=== PATIENT | male | born 1980 | race Caucasian/White ===

== ENCOUNTER → 2017-10-15 09:06 | Outpatient (CLI) | payer OTHER, SELFPAY ==
[2017-10-15 11:11] LABS: Hemoglobin 17.8 g/dL (13.5-17.5); Mean Corpuscular Volume 87.9 fL (80-100); Neutrophils Absolute Auto 2900 /uL (3000-5900)
[2017-10-15 11:17] LABS: Add Manual Diff / Slide Review NO; Basophils Percent Auto 0.7 % (0-2); Eosinophils Percent Auto 1.2 % (2-4); Hematocrit 49.3 % (41-53); Lymphocytes Percent Auto 56.8 % (25-40); Mean Corpuscular HGB Conc 36.2 % (30-36); Mean Corpuscular Hemoglobin 31.8 PG (26-34); Monocytes Percent Auto 8.3 % (3-14); Platelet Count 128 X10^3/uL (150-400); Red Blood Cell Count 5.61 X10^6/uL (4.5-5.9); Red Cell Distribution Width 13.2 % (11.6-14.8); White Blood Cell Count 8.8 X10^3/uL (4.5-11.0)
[2017-10-15 11:25] LABS: Alanine Aminotransferase 42 IU/L (21-72); Albumin 4.2 g/dL (3.5-5.0); Albumin Globulin Ratio 1.4 (1.0-2.8); Alkaline Phosphatase 67 U/L (38-126); Aspartate Aminotransferase 31 IU/L (17-59); BUN Creatinine Ratio 24.4 (6-22); Bilirubin Total 1.2 mg/dL (0.2-1.3); Blood Urea Nitrogen 22 mg/dL (9-20); Carbon Dioxide 25 mmol/L (22-32); Chloride 99 mmol/L (98-107); Creatine Kinase 167 U/L (55-170); Estimated Glomerular Filt Rate > 60.0 mL/min (>60); Glucose 131 mg/dL (70-100); Sodium 138 mmol/L (137-145); Total Protein 7.2 g/dL (6.3-8.2)
[2017-10-15 11:26] LABS: C-Reactive Protein Quant < 0.5 mg/dL (<1.0)
[2017-10-15 11:39] LABS: HEMOLYSIS 56 (0-50)
[2017-10-15 11:52] LABS: Thyroid Stimulating Hormone 3.75 uIU/mL (0.47-4.68)
[2017-10-17 22:08] LABS: ANA Screen, IFA Negative (Negative)
== END ==
PROVIDERS: Family Provider Family Medicine; PCP Family Medicine; Visit Provider Physical Medicine & Rehabilitation
DX: M79.1 Myalgia (principal); R25.2 Cramp and spasm; M51.24 Other intervertebral disc displacement, thoracic region; S33.5XXA Sprain of ligaments of lumbar spine, initial encounter
CPT/HCPCS: 36415; 80053; 82550; 84443; 85025; 86038; 86140

== ENCOUNTER → 2017-11-19 15:55 | Outpatient (CLI) | payer OTHER, SELFPAY ==
[2017-11-19 16:24] LABS: Add Manual Diff / Slide Review NO; Basophils Percent Auto 0.8 % (0-2); Eosinophils Percent Auto 1.1 % (2-4); Hematocrit 45.2 % (41-53); Hemoglobin 16.1 g/dL (13.5-17.5); Lymphocytes Percent Auto 45.9 % (25-40); Mean Corpuscular HGB Conc 35.7 % (30-36); Mean Corpuscular Hemoglobin 31.4 PG (26-34); Monocytes Percent Auto 7.2 % (3-14); Neutrophils Absolute Auto 2900 /uL (3000-5900); Platelet Count 228 X10^3/uL (150-400); Red Blood Cell Count 5.13 X10^6/uL (4.5-5.9); White Blood Cell Count 6.4 X10^3/uL (4.5-11.0)
[2017-11-19 16:32] LABS: Hemoglobin A1C% w Est Avg Glu 7.6 % (4.0-6.0)
[2017-11-19 17:23] LABS: Alanine Aminotransferase 71 IU/L (21-72); Albumin 4.3 g/dL (3.5-5.0); Albumin Globulin Ratio 1.4 (1.0-2.8); Alkaline Phosphatase 70 U/L (38-126); Aspartate Aminotransferase 48 IU/L (17-59); Bilirubin Total 1.3 mg/dL (0.2-1.3); Blood Urea Nitrogen 11 mg/dL (9-20); Calcium 8.9 mg/dL (8.4-10.2); Carbon Dioxide 27 mmol/L (22-32); Chloride 100 mmol/L (98-107); Cholesterol 203 mg/dL (140-199); Estimated Glomerular Filt Rate > 60.0 mL/min (>60); Globulin 3.1 g/dL (1.7-4.1); Glucose 101 mg/dL (70-100); HDL Cholesterol 31 mg/dL (40-60); HEMOLYSIS 16 (0-50); LDL Cholesterol Calculated 131 mg/dL (<100); Potassium 3.5 mmol/L (3.4-5.1); Sodium 138 mmol/L (137-145); Total Protein 7.4 g/dL (6.3-8.2); Triglycerides 205 mg/dL (35-150)
== END ==
PROVIDERS: Family Provider Family Medicine; PCP Family Medicine; Visit Provider Nurse Practitioner
DX: E75.4 Neuronal ceroid lipofuscinosis (principal); Z00.00 Encounter for general adult medical examination without abnormal findings; E66.01 Morbid (severe) obesity due to excess calories
CPT/HCPCS: 36415; 80053; 80061; 83036; 85025

== ENCOUNTER → 2018-03-23 15:49 | Outpatient (CLI) | payer OTHER, SELFPAY ==
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
== END ==
PROVIDERS: PCP Nurse Practitioner; Visit Provider Nurse Practitioner
DX: E11.9 Type 2 diabetes mellitus without complications (principal); E66.8 Other obesity
CPT/HCPCS: 97802

== ENCOUNTER → 2018-04-13 16:01 | Outpatient (CLI) | payer OTHER, SELFPAY ==
--- NOTE | 2018-04-14 08:34 | DIET.PN ---
Nutrition follow up ? ASSESS:???Pt reports difficulty in following recommendations discussed at previous visit over the holiday. States mostly consumed hotel and restaurant food (eggs, hashbrowns, biscuits, mac n cheese, almaraz chvaez). Admits he is not good at making time for breakfast or lunch, but eats a very large dinner. Pt attended today's appointment. 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 Pt also reports poor memory. Did not recall much of what was discussed at prior appt. No dietary recall was recorded or blood glucose logged as requested. ? PMHX:??Severe back pain ? LABS: A1c 7.7 FB-140 2 hr PP (evening) :??120's Wt: 282 (down 5#) ? MEDS: Reviewed.? DM MEDS:??metformin 500mg ? DIET: Per recall:? B: Cereal w/ milk L: Dillon noodles D: starch and protein ? EXERCISE:??minimal walking ? NUTRITION Dx? (1) Altered nutrition related labs r/t type 2 DM, inconsistent carbohydrate intake as evidenced by pt report, dietary recall.?? ? INTERVENTION? (1) Reviewed blood sugar log and implications/reasons for elevated/decreased blood sugar.? (2) Reviewed carbohydrate counting and importance of consistent carbohydrate intake.? (3) Reviewed meal intake and importance of balanced meals (karlie to prevent overeating).? (4) Assisted patient create a meal plan for breakfast/lunch ideas to promote consistency while working.?? ? MONITOR/EVALUATE: Pt receptive to information provided.? Follow-up scheduled for 1 week to discuss protein/fat.?
== END ==
PROVIDERS: PCP Nurse Practitioner; Visit Provider Nurse Practitioner
DX: E11.9 Type 2 diabetes mellitus without complications (principal)
CPT/HCPCS: 97803

== ENCOUNTER → 2018-04-20 12:00 | Outpatient (CLI) | payer OTHER, SELFPAY | PROVIDERS: PCP Nurse Practitioner; Visit Provider Nurse Practitioner | DX: E11.9 Type 2 diabetes mellitus without complications (principal) | CPT/HCPCS: 97803 ==

== ENCOUNTER 2018-07-27 17:40 | Observation (INO) | payer OTHER, SELFPAY ==
[2018-07-27] VITALS (8 sets, daily range): BP systolic 128–147; BP diastolic 76–98; PULSE 73–87; RESP 13–20; TEMP 36.4; O2SAT 94–100; BMI 37.7
--- NOTE | 2018-07-27 18:39 | DI.RAD.S_ITS ---
PROCEDURE: XR CHEST 1V INDICATIONS: cp TECHNIQUE: One view of the chest was acquired. COMPARISON: [facility], , CHEST 1 VIEW, 08/10/2008, 19:49. FINDINGS: Surgical changes and devices: None. Lungs and pleura: Low lung volumes with scattered subsegmental atelectasis/scarring. No pleural effusions or pneumothorax. Mediastinum: Mediastinal contours appear normal. Heart size is normal. Bones and chest wall: No suspicious bony lesions. Overlying soft tissues appear unremarkable. IMPRESSION: No acute disease Dictated by: Dharmesh Shepherd M.D. on 07/27/2018 at 19:02 Approved by: Dharmesh Shepherd M.D. on 07/27/2018 at 19:03
[2018-07-27 18:50] LABS: Hematocrit 47.1 % (41-53); Hemoglobin 16.3 g/dL (13.5-17.5); Mean Corpuscular HGB Conc 34.6 % (30-36); Mean Corpuscular Hemoglobin 30.3 PG (26-34); Mean Corpuscular Volume 87.5 fL (80-100); Platelet Count 210 X10^3/uL (150-400); Red Blood Cell Count 5.38 X10^6/uL (4.5-5.9); Red Cell Distribution Width 12.8 % (11.6-14.8); White Blood Cell Count 6.6 X10^3/uL (4.5-11.0)
[2018-07-27 18:51] LABS: Add Manual Diff / Slide Review YES
[2018-07-27 18:55] LABS: D Dimer < 200 ng/mL (<230)
--- NOTE | 2018-07-27 19:02 | DI.US.S_ITS ---
PROCEDURE: US ABDOMEN COMPLETE INDICATIONS: EPIGASTRIC PAIN TECHNIQUE: Real-time scanning was performed of the abdominal and retroperitoneal organs, with image documentation. COMPARISON: None. FINDINGS: Liver: Liver is diffusely echogenic. Gallbladder: 6 mm gallstone which appears immobile within the gallbladder neck. No definite gallbladder wall thickening or pericholecystic fluid. Positive sonographic Waterman's sign Biliary ducts: Intrahepatic bile ducts are non-dilated. Extrahepatic bile duct caliber measures 7 mm. Normal is 6-7 mm or less in diameter, or 10 mm or less post-cholecystectomy. Pancreas: Visualized portions of the pancreas are sonographically normal. The tail is not well seen sonographically Spleen: Spleen is enlarged measuring 16.3 cm. Kidneys: Kidneys are normal in size and echotexture. Right kidney measures 12.3 cm long; left kidney measures 12.1 cm long. No hydronephrosis or nephrolithiasis. No solid masses. Aorta: Visualized aorta is normal in caliber at less than 3 cm. Iliacs: Proximal common iliac arteries are normal in caliber at less than 2.5 cm. IVC: Intrahepatic inferior vena cava is patent. Miscellaneous: No free abdominal fluid. IMPRESSION: Cholelithiasis, which may be impacted at the gallbladder neck. Positive sonographic Waterman sign. This raises the possibility of acute cholecystitis However, no definite gallbladder wall thickening or pericholecystic fluid. Recommend clinical correlation and to LFTs Splenomegaly. Coarse echogenic liver suggesting diffuse hepatocellular disease/fatty infiltration. Please correlate with LFTs. Dictated by: Dharmesh Shepherd M.D. on 07/27/2018 at 20:13 Approved by: Dharmesh Shepherd M.D. on 07/27/2018 at 20:15
[2018-07-27 19:04] LABS: Alanine Aminotransferase 57 IU/L (21-72); Albumin 4.5 g/dL (3.5-5.0); Albumin Globulin Ratio 1.5 (1.0-2.8); Alkaline Phosphatase 44 U/L (38-126); Aspartate Aminotransferase 44 IU/L (17-59); Bilirubin Total 1.2 mg/dL (0.2-1.3); Blood Urea Nitrogen 17 mg/dL (9-20); Calcium 8.9 mg/dL (8.4-10.2); Carbon Dioxide 26 mmol/L (22-32); Chloride 102 mmol/L (98-107); Creatine Kinase 400 U/L (55-170); Estimated Glomerular Filt Rate > 60.0 mL/min (>60); Glucose 95 mg/dL (70-100); Lipase 58 U/L (23-300); Sodium 137 mmol/L (137-145); Total Protein 7.5 g/dL (6.3-8.2)
[2018-07-27 19:08] LABS: HEMOLYSIS 103 (0-50); Potassium 4.4 mmol/L (3.4-5.1)
[2018-07-27 19:16] LABS: Troponin I 0.023 ng/mL (0.01-0.034)
[2018-07-27 19:19] LABS: CKMB % Relative Index 1.2 % (1.5-5.0); Creatine Kinase MB 4.64 ng/mL (<2.37)
[2018-07-27 19:26] LABS: Neutrophils Absolute Manual 2046 /uL (3000-5900); Total Cells Counted 100
[2018-07-27 19:28] LABS: RBC Morphology Normal Morphology
--- NOTE | 2018-07-27 19:55 | ED_ITS ---
HPI - Chest Pain General Chief Complaint: Chest Pain Stated Complaint: chest pains in the middle, and right side Time Seen by Provider: 07/27/18 18:18 Source: patient Mode of arrival: ambulatory Limitations: no limitations History of Present Illness HPI narrative: 37-year-old male nonsmoker with a rather benign medical history presents with a chief complaint an episode of sharp and stabbing epigastric pain that has since radiated to his right upper quadrant over the course of the day. It is worse with motion and palpation. He has felt a bit nauseated and lightheaded. He denies fever or shaking chills. Patient denies any abdominal surgeries. He last had any food at Related Data Home Medications Medication Instructions Recorded Confirmed CA PANTOTHENATE/FOLIC ACID/VIT 1 tab PO QDAY #0 09/26/12 01/05/18 (MULTIVITAMIN) Fish Oil (Fish Oil 500 MG Softgel) 500 mg PO QDAY #0 09/26/12 01/05/18 OMEPRAZOLE 20 mg PO BID #0 09/26/12 01/05/18 lorazepam 1 mg PO Q4HP PRN #0 01/15/17 01/05/18 cholecalciferol (vitamin D3) 2,000 2,000 unit PO DAILY 03/07/18 03/07/18 unit capsule metformin 500 mg tablet 500 mg PO BID 03/07/18 03/07/18 Previous Rx's Medication Instructions Recorded verapamil ER 240 mg 24 hr 240 mg PO QDAY #30 cap 01/05/18 capsule,extended release erenumab-aooe 70 mg/mL 140 mg SUBCUT QMONTH #2 ml 03/07/18 subcutaneous auto-injector Allergies Allergy/AdvReac Type Severity Reaction Status Date / Time naproxen [NAPROXEN] Allergy Unknown Verified 07/27/18 17:49 Review of Systems Constitutional Denies chills, Denies fever(s), Denies lethargy and Denies weakness Eyes Denies change in vision, Denies eye discharge, Denies irritation and Denies loss of vision ENT Ears, Nose, Mouth, and Throat: Denies change in voice, Denies neck pain and Denies sore throat Cardiovascular Denies chest pain, Denies irregular heart rhythm, Denies lightheadedness, Denies palpitations, Denies dyspnea, Denies dyspnea on exertion and Denies orthopnea Respiratory Denies cough, Denies dyspnea, Denies dyspnea on exertion and Denies wheezing Gastrointestinal Gastrointestinal: Reports abdominal pain, Denies change in bowel habits, Denies diarrhea, Reports nausea and Reports vomiting Genitourinary Denies hematuria, Denies flank pain, Denies urinary incontinence and Denies urinary urgency Musculoskeletal Denies neck pain Integumentary/Breasts Denies pruritus, Denies erythema, Denies rash and Denies wounds Neurologic Denies confusion, Denies loss of vision and Denies weakness Psychiatric Denies anxiety, Denies confusion, Denies depression, Denies homicidal ideation and Denies suicidal ideation Endocrine Denies palpitations Hematologic/Lymphatic Denies easy bruising Allergic/Immunologic Denies wheezing [facility] Medical History Asthma (Chronic) Cyclical vomiting (Chronic) Diabetes (Chronic) HTN (hypertension) (Chronic) Migraines (Chronic) Sleep apnea (Chronic) Surgical History H/O arthroscopy of knee (Resolved) Family History Father Cancer Social History household members: spouse Smoking Status: Former smoker Family History Father Cancer Social History household members: spouse Smoking Status: Former smoker Exam Narrative Exam Narrative: GENERAL: 37M obviously uncomfortable HEAD: Atraumatic. Normocephalic. No temporal or scalp tenderness. EYES: Pupils equal round and reactive. Extraocular motions intact. No scleral icterus. No injection or drainage. ENT: Nose without bleeding, purulent drainage or septal hematoma. Throat without erythema, tonsillar hypertrophy or exudate. Uvula midline. Airway patent. NECK: Trachea midline. No JVD or lymphadenopathy. Supple, nontender, no meningeal signs. CARDIOVASCULAR: Regular rate and rhythm without murmurs, gallops, or rubs. RESPIRATORY: Clear to auscultation. Breath sounds equal bilaterally. No wheezes, rales, or rhonchi. GASTROINTESTINAL: obese abdomen, quite tender in RUQ, pain with palp EXTREMITIES: No clubbing, cyanosis, or edema. No joint tenderness, effusion, or edema noted. BACK: Nontender without deformity or crepitance. No flank tenderness. NEURO: AOx3. SKIN: No rash or erythema. Initial Vital Signs Initial Vital Signs: Vital Signs Temperature 97.5 F L 07/27/18 17:44 Pulse Rate 84 07/27/18 17:44 Respiratory Rate 18 07/27/18 17:44 Blood Pressure 147/98 H 07/27/18 17:44 Pulse Oximetry 99 07/27/18 17:44 Course Orders Ordered: Hydromorphone HCl (Dilaudid) 1 mg IV Q2HR PRN PRN Reason: Pain, Moderate (4-6) Last Admin: 07/28/18 06:11 Dose: 1 mg Admin: 07/27/18 23:25 Dose: 1 mg Cefotetan Disodium/Dextrose (Cefotan) 2 gm in 50 mls @ 100 mls/hr IV Q12H [facility] Last Infusion: 07/28/18 06:15 Dose: 0 mls/hr Admin: 07/28/18 02:03 Dose: 100 mls/hr Sodium Chloride (Normal Saline 0.9%) 1,000 mls @ 125 mls/hr IV CONT [facility] Last Admin: 07/27/18 23:24 Dose: 125 mls/hr Ondansetron HCl (Zofran) 4 mg IV Q4HR PRN PRN Reason: Nausea And Vomiting Last Admin: 07/28/18 06:43 Dose: 4 mg Admin: 07/27/18 23:25 Dose: 4 mg Verapamil HCl (Verapamil Er) 240 mg PO DAILY [facility] Last Admin: 07/28/18 02:02 Dose: 240 mg Discontinued Medications Enoxaparin Sodium (Lovenox) 40 mg SUBCUT NOW ONE Stop: 07/27/18 23:06 Last Admin: 07/28/18 02:02 Dose: 40 mg HYDROMORPHONE APPRAISAL TECHNICIAN (6MG/30ML) (Dilaudid Waste Picker (6mg/30ml)) 6 mg in 30 mls @ 0 mls/hr IV Q8HR PRN PRN Reason: Pain, Severe (7-10) Naloxone HCl (Narcan) 0.2 mg IV Q2MIN PRN; Protocol PRN Reason: Opiate Reversal Ondansetron HCl (Zofran) 4 mg IV Q4HR PRN PRN Reason: Nausea And Vomiting Vital Signs - 8 hr 07/28/18 00:29 07/28/18 03:11 Temperature 97.0 F L 97.6 F Pulse Rate 76 76 Respiratory Rate 18 Blood Pressure 139/75 119/76 Pulse Oximetry 98 MDM - Chest Pain Medical Records Data Attestation: I reviewed the patient's medical records. Lab Data Attestation: I reviewed the patient's lab results. Result diagrams: 07/27/18 18:35 07/27/18 18:35 Lab Results 07/27/18 07/27/18 07/27/18 Range/Units 18:35 18:35 18:35 WBC 6.6 (4.5-11.0) X10^3/uL RBC 5.38 (4.5-5.9) X10^6/uL Hgb 16.3 (13.5-17.5) g/dL Hct 47.1 (41-53) % MCV 87.5 (80-100) fL MCH 30.3 (26-34) PG MCHC 34.6 (30-36) % RDW 12.8 (11.6-14.8) % Plt Count 210 (150-400) X10^3/uL Neut % (Auto) Not Reportable Lymph % (Auto) Not Reportable [place] % (Auto) Not Reportable Eos % (Auto) Not Reportable Baso % (Auto) Not Reportable Lymph # (Auto) Not Reportable [place] # (Auto) Not Reportable Baso # (Auto) Not Reportable Total Counted 100 Seg Neutrophils % 31.0 L (38-70) % Lymphocytes % (Manual) 38.0 (25-45) % Atypical Lymphs % 26.0 H ( - 0) % Monocytes % (Manual) 2.0 (2-11) % Basophils % (Manual) 3.0 H (0-1) % Neutrophils # (Manual) 2046 L (3340-9482) /uL RBC Morphology Normal morphology D-Dimer < 200 (<230) ng/mL Sodium 137 (137-145) mmol/L Potassium 4.4 (3.4-5.1) mmol/L Chloride 102 (98-107) mmol/L Carbon Dioxide 26 (22-32) mmol/L BUN 17 (9-20) mg/dL Creatinine 1.00 (0.66-1.25) mg/dL Estimated GFR > 60.0 (>60) mL/min BUN/Creatinine Ratio 17.0 (6-22) Glucose 95 (70-100) mg/dL Calcium 8.9 (8.4-10.2) mg/dL Total Bilirubin 1.2 (0.2-1.3) mg/dL AST 44 (17-59) IU/L ALT 57 (21-72) IU/L Alkaline Phosphatase 44 (38-126) U/L Total Creatine Kinase 400 H (55-170) U/L CK-MB (CK-2) 4.64 H (<2.37) ng/mL CK-MB (CK-2) Rel Index 1.2 L (1.5-5.0) % Troponin I 0.023 (0.01-0.034) ng/mL Total Protein 7.5 (6.3-8.2) g/dL Albumin 4.5 (3.5-5.0) g/dL Globulin 3.0 (1.7-4.1) g/dL Albumin/Globulin Ratio 1.5 (1.0-2.8) Lipase 58 (23-300) U/L Urine Dip Bedside Urine Glucose Negative Bedside Urine Bilirubin - Negative Bedside Urine Ketone - Negative Urine Specific [place] 1.015 Bedside Urine Occult Blood - Negative Bedside Urine pH 6.5 Bedside Urine Protein - Negative Bedside Urine Urobilinogen - Negative Bedside Urine Nitrite - Negative Bedside Urine Leukocytes - Negative Esterase Imaging Data Chest x-ray: Radiologist's impression: [address] [address] XRay Report Signed Patient: Leeroy Denis BMR#: [id number] : 1980Acct:[id number] Age/Sex: 37 / MDate of Service: 07/27/18 Loc: ED Accession Number: [id number] Procedure: XR chest 1V Ordering Provider: Arun Ontiveros D.O. PROCEDURE: XR CHEST 1V INDICATIONS: cp TECHNIQUE: One view of the chest was acquired. COMPARISON: Merged with [facility], CHEST 1 VIEW, 08/10/2008, 19:49. FINDINGS: Surgical changes and devices: None. Lungs and pleura: Low lung volumes with scattered subsegmental atelectasis/scarring. No pleural effusions or pneumothorax. Mediastinum: Mediastinal contours appear normal. Heart size is normal. Bones and chest wall: No suspicious bony lesions. Overlying soft tissues appear unremarkable. IMPRESSION: No acute disease Dictated by: Dharmesh Shepherd M.D. on 07/27/2018 at 19:02 Approved by: Dharmesh Shepherd M.D. on 07/27/2018 at 19:03 US - abdomen: Radiologist's impression: [address] [address] Ultrasound Report Signed Patient: Leeroy Denis BMR#: [id number] : 1980Acct:[id number] Age/Sex: 37 / MDate of Service: 07/27/18 Loc: ED Accession Number: [id number] Procedure: US abdomen complete Ordering Provider: Arun Ontiveros D.O. PROCEDURE: US ABDOMEN COMPLETE INDICATIONS: EPIGASTRIC PAIN TECHNIQUE: Real-time scanning was performed of the abdominal and retroperitoneal organs, with image documentation. COMPARISON: None. FINDINGS: Liver: Liver is diffusely echogenic. Gallbladder: 6 mm gallstone which appears immobile within the gallbladder neck. No definite gallbladder wall thickening or pericholecystic fluid. Positive sonographic Waterman's sign Biliary ducts: Intrahepatic bile ducts are non-dilated. Extrahepatic bile duct caliber measures 7 mm. Normal is 6-7 mm or less in diameter, or 10 mm or less post-cholecystectomy. Pancreas: Visualized portions of the pancreas are sonographically normal. The tail is not well seen sonographically Spleen: Spleen is enlarged measuring 16.3 cm. Kidneys: Kidneys are normal in size and echotexture. Right kidney measures 12.3 cm long; left kidney measures 12.1 cm long. No hydronephrosis or nephrolithiasis. No solid masses. Aorta: Visualized aorta is normal in caliber at less than 3 cm. Iliacs: Proximal common iliac arteries are normal in caliber at less than 2.5 cm. IVC: Intrahepatic inferior vena cava is patent. Miscellaneous: No free abdominal fluid. IMPRESSION: Cholelithiasis, which may be impacted at the gallbladder neck. Positive sonographic Waterman sign. This raises the possibility of acute cholecystitis However, no definite gallbladder wall thickening or pericholecystic fluid. Recommend clinical joel elation and to LFTs Splenomegaly. Coarse echogenic liver suggesting diffuse hepatocellular disease/fatty infiltration. Please correlate with LFTs. Dictated by: Dharmesh Shepherd M.D. on 07/27/2018 at 20:13 Approved by: Dharmesh Shepherd M.D. on 07/27/2018 at 20:15 [facility] Narrative Medical decision making narrative: discussed case with Gen. Surgery and he recommends admission with NPO status, antibiotics, fluids, and pain control or if patient would prefer he can be discharged with detailed return precautions and he will be seen in office on Wednesday. Patient prefers to stay in the hospital to this addressed sooner rather than later Discharge Plan Departure Patient Disposition: Admitted As Inpatient Clinical Impression: Cholelithiasis Qualifiers: Cholelithiasis location: gallbladder Cholecystitis presence: without cholecystitis Biliary obstruction: with biliary obstruction Qualified Code(s): K80.21 - Calculus of gallbladder without cholecystitis with obstruction Discharge Date/Time: 07/27/18 22:00 Interventions: ED Discharge Assessment Last Done: 07/27/18 22:47 Admit Date/Time: 07/27/18 21:23 Admit Provider: Scout Hawkins
--- NOTE | 2018-07-27 22:57 | PC.NURSE ---
Addendum entered by Dharmesh Isaac R.N. 07/27/18 23:05: Rec'd return call from Dr. Hawkins and rec'd TORB for dilaudid, zofran, and lovenox (see EMAR). Original Note: Rec'd pt from ED via w/c at 2220. AO x3 and making needs known with clear speech. Ambulates to BR independently with steady gait to void. Changed into hospital gown. Oriented to environment, bedside report, plan of care, call light. Pt reports pain 2/10 at rest and intermittently 6/10. Locates pain to RUQ, mid-epigastric and radiating to back at times. Also c/o intermittent nausea. Paged to Dr. Hawkins to report pain as no orders are noted in chart. Awaiting return call.
[2018-07-27] MEDS: SODIUM CHLORIDE 0.9% 1,000 ML 125 ML IV (23:24)
[2018-07-27] MEDS: HYDROMORPHONE 2 MG INJ 1 MG IV (23:25)
[2018-07-27] MEDS: ONDANSETRON 4 MG/2 ML INJ IV (23:25)
[2018-07-28] VITALS (28 sets, daily range): BP systolic 100–139; BP diastolic 52–78; PULSE 63–109; RESP 10–18; TEMP 36.1–37.4; O2SAT 87–100; BMI 37.7
--- NOTE | 2018-07-28 | PATH_ITS ---
[facility] Accession Number: [id number] . 01 Material submitted: . GALLBLADDER . 02 Diagnosis: Gallbladder, Cholecystectomy: Cholelithiasis with mild chronic cholecystitis. Negative for neoplasm. I/08/01/2018 . 02 Electronically signed: . Clinton Goins MD, PhD, Pathologist NPI- [id number] . 01 Gross description: . Received in formalin, labeled gallbladder, is an opened gallbladder (length-7.2 cm, diameter-2.8 cm) with tomlinson-blue smooth shiny serosa and a patent cystic duct. One lymph node (0.3 x 0.2 x 0.1 cm) is identified. The lumen contains green viscous bile and multiple dull hicks-yellow, friable calculi (0.3 x 0.2 x 0.1 cm in aggregate). The mucosa is hicks-green, smooth and flat. The wall is up to 0.1 cm thick. No nodules, masses or lesions are identified. Section code: (A1) cystic duct resection margin and two serial sections from the body; (A2) two longitudinal sections from the fundus; (A3) one intact lymph node. ([id number]) /MRV . 02 Pathologist provided ICD-10: K80.60 . 02 CPT . 627897 Specimen Comment: A duplicate report has been generated due to demographic updates. Performed at: 01 [facility] [address] [place] [address], [place], [place] [id number] MD Leeroy Saba MD Phone: [phone] Performed at: [address] [facility] [address] [place], [place] [id number] MD Jocelyne Love MD Phone: [phone]
[2018-07-28] MEDS: VERAPAMIL SR 240 MG TABLET PO (02:02)
[2018-07-28] MEDS: ENOXAPARIN 40 MG/0.4 ML SYRINGE SUBCUT (02:02)
[2018-07-28] MEDS: CEFOTETAN 2 GM/50 ML PIGGYBACK IV (02:03)
[2018-07-28] MEDS: HYDROMORPHONE 2 MG INJ 1 MG IV (06:11)
[2018-07-28] MEDS: ONDANSETRON 4 MG/2 ML INJ IV ×3 (06:43→20:30)
--- NOTE | 2018-07-28 07:25 | P.HP_ITS ---
History of Present Illness Date Patient Seen: 07/28/18 Time Patient Seen: 07:15 Chief complaint: chest pains in the middle, and right side Narrative: The patient is a gentleman with intermittent epigastric/chest pain for about a year. Usually it comes and goes away fairly quickly. No particular association with food. Last night however he developed the pain it lasts for about 5 hr and presented to the emergency room. He has cyclic nausea and vomiting but does not necessarily associate it with his pain. However yesterday he was nauseated but did not vomit. He has had no other abdominal procedures. He has no history of jaundice. No blood in his stool and no hematemesis. Patient History Medical History Asthma (Chronic) Cyclical vomiting (Chronic) Diabetes (Chronic) HTN (hypertension) (Chronic) Migraines (Chronic) Sleep apnea (Chronic) Surgical History H/O arthroscopy of knee (Resolved) Family History Father Cancer Social History household members: spouse Smoking Status: Former smoker Family & Social History Family History Father Cancer Social History: household members spouse Prior Living Arrangements Apartment/Condo Safety & Behavioral: Feels Safe in Current Yes Environment Been Physically Hurt or No Threatened By a Person Suicidal Ideation Description None Tobacco & Substance use: Smoking Status Former smoker alcohol intake frequency holiday/special occasion Substance Use Type does not use Meds Home Medications Medication Instructions Recorded Confirmed Type CA PANTOTHENATE/FOLIC ACID/VIT 1 tab PO QDAY #0 09/26/12 01/05/18 History (MULTIVITAMIN) Fish Oil (Fish Oil 500 MG Softgel) 500 mg PO QDAY #0 09/26/12 01/05/18 History OMEPRAZOLE 20 mg PO BID #0 09/26/12 01/05/18 History lorazepam 1 mg PO Q4HP PRN #0 01/15/17 01/05/18 History verapamil ER 240 mg 24 hr 240 mg PO QDAY #30 cap 01/05/18 Rx capsule,extended release cholecalciferol (vitamin D3) 2,000 2,000 unit PO DAILY 03/07/18 03/07/18 History unit capsule erenumab-aooe 70 mg/mL 140 mg SUBCUT QMONTH #2 ml 03/07/18 03/07/18 Rx subcutaneous auto-injector metformin 500 mg tablet 500 mg PO BID 03/07/18 03/07/18 History Allergies Allergy/AdvReac Type Severity Reaction Status Date / Time naproxen [NAPROXEN] Allergy Unknown Verified 07/27/18 17:49 Review of Systems Review of Systems Patient denies double vision pain is eyes earache sore throat or trouble sw allowing. No tooth aches. No cough or cold at this time. No sputum production. His asthma use to be treated with an inhaler but that no longer seems to help him. He he is not wheezing at this time. Patient denies heart problems. Had a murmur as a child but that went away. No black or bloody bowel movements. No seizures or blackouts. No problems with his thyroid he is aware of. He is an early diabetic. If he does not eat he has normal sugars but when he eats he takes metformin. No unusual bruising or bleeding. He does get migraine headaches. He has cyclical vomiting syndrome. He treats it with Zofran which he takes about every other day Exam Vital Signs (past 8 hours): - 07/28/18 00:29 07/28/18 03:11 Temperature 97.0 F L 97.6 F Pulse Rate 76 76 Respiratory Rate 18 Blood Pressure 139/75 119/76 Pulse Oximetry 98 Oxygen Delivery Method Room Air Oxygen Flow Rate 0 Narrative Exam Narrative: Cooperative pleasant gentleman in no apparent distress. Quite overweight. His eyes are nonicteric. Pupils equal round reactive to light. Conjunctivae are pink. Ears without lesion. He has a kelly. Oral mucosa is pink moist no open lesions. Teeth are intact. There are no nodes in the neck or supraclavicular areas. Trachea is midline and mobile. I feel no enlargement or mass or tenderness in his thyroid. His lungs are clear to auscultation without rales rhonchi or wheezing. Equal percussion. Heart regular rate and rhythm without murmur gallop. No heave lift or thrill. His abdomen is protuberant soft. He has tenderness to deep palpation the right upper quadrant. No guarding. Normal active bowel tones. No hernias appreciated. No masses appreciated. His extremities are without cyanosis clubbing or edema. I feel 1+ tibialis posterior pulses bilaterally. The patient is alert and oriented x3. Speech rate and content are appropriate. Affect is appropriate. His extr aocular movements are intact time his midline face is symmetric uvula elevates in the midline. Objective Imaging US - abdomen: Radiologist's impression: Stone in the neck of the gallbladder. No evidence of acute cholecystitis. Normal ductal system. Fatty infiltration of the liver. Labs Result Diagrams: 07/27/18 18:35 07/27/18 18:35 Labs: Laboratory Results - last 24 hr 07/27/18 07/27/18 07/27/18 18:35 18:35 18:35 WBC 6.6 RBC 5.38 Hgb 16.3 Hct 47.1 MCV 87.5 MCH 30.3 MCHC 34.6 RDW 12.8 Plt Count 210 Neut % (Auto) Not Reportable Lymph % (Auto) Not Reportable [place] % (Auto) Not Reportable Eos % (Auto) Not Reportable Baso % (Auto) Not Reportable Lymph # (Auto) Not Reportable [place] # (Auto) Not Reportable Baso # (Auto) Not Reportable Total Counted 100 Seg Neutrophils % 31.0 L Lymphocytes % (Manual) 38.0 Atypical Lymphs % 26.0 H Monocytes % (Manual) 2.0 Basophils % (Manual) 3.0 H Neutrophils # (Manual) 2046 L RBC Morphology Normal morphology D-Dimer < 200 Sodium 137 Potassium 4.4 Chloride 102 Carbon Dioxide 26 BUN 17 Creatinine 1.00 Estimated GFR > 60.0 BUN/Creatinine Ratio 17.0 Glucose 95 Calcium 8.9 Total Bilirubin 1.2 AST 44 ALT 57 Alkaline Phosphatase 44 Total Creatine Kinase 400 H CK-MB (CK-2) 4.64 H CK-MB (CK-2) Rel Index 1.2 L Troponin I 0.023 Total Protein 7.5 Albumin 4.5 Globulin 3.0 Albumin/Globulin Ratio 1.5 Lipase 58 Assessment & Plan Assessment & Plan narrative: Patient is a gentleman with intermittent upper abdominal pain. Most recent episode resulted in an ER visit with findings consistent with a stone lodged in the neck of the gallbladder. Have discussed removal of his gallbladder and possible cholangiogram and possible postop ERCP with him. Talked to him about the reason we do not just remove the stones. Talked to him about the affects of removing his gallbladder and some of the long-term problems that could occur. Talked to him about postop restrictions. Talked to him about the risks of bleeding, infection, injury to internal organs or ducts, hernia, bile leakage postop. He appears to understand. He wishes to proceed. Will continue to control his blood pressure, treat migraines, Zofran for nausea, monitor his sugars and treat accordingly. He was given DVT prophylaxis last night with Lovenox. Will continue that postop. Broad-spectrum antibiotics were given. They will continue until the operation. Quality VTE Deep Vein Thrombosis/Pulmonary Embolism Present on Admission: No
--- NOTE | 2018-07-28 07:29 | PM.PREOP ---
Pre-operative Note Interval Note History & Physical reviewed/Exam performed by Physician: Yes Changes to H&P: No
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
[2018-07-28] MEDS: CEFAZOLIN 2 GM/100 ML FROZ.PIGGY IV (07:55)
[2018-07-28] MEDS: LACTATED RINGERS 1,000 ML 42 ML IV ×3 (08:02→11:32)
--- NOTE | 2018-07-28 08:29 | SUR.OPER ---
Supine on padded OR bed, head on pillow, arms secured on padded arm boards at <90 degrees abduction, legs uncrossed, safety belt at thigh, tape over blanket over lower legs.
[2018-07-28] MEDS: BUPIVACAINE 0.5% (PF) VIAL 30 ML INJ (08:39)
--- NOTE | 2018-07-28 09:39 | PM.OP.1 ---
Operative Date/Time/Diagnoses Date of procedure: 07/28/18 Time of procedure: 09:28 Pre-op diagnosis: Cholelithiasis. Abdominal pain. Post-op diagnosis: same Procedure & Clinicians Procedure: Laparoscopic cholecystectomy Same procedure as scheduled: Yes Indications: severe right upper quadrant pain with an ultrasound showing a stone lodged in the neck of the gallbladder Surgeon: Scout Hawkins Click Yes if Unassisted: Yes Anesthesia Type: General Operative Notes Findings: fairly normal walled gallbladder with a stone. Closure Type: primary Specimen(s): other ( Gallbladder) Prosthetic devices, grafts, tissues, transplants, or devices: none Estimated Blood Loss (mL): 5 Blood products transfused: none Procedure in detail: The patient was placed supine on the operating room table and underwent general endotracheal anesthesia. he was prepped and draped in the usual fashion. Local anesthetic was infiltrated abovethe umbilicus and an incision made in the midline. It was carried down to the level of the peritoneum which was opened under direct vision. Stay sutures of 0 Polysorb were placed in the fascia. A 12 mm portwas inserted and the abdomen was insufflated. The patient was repositioned and local anesthetic was infiltrated again beneath the right costal margin and 3 small 5 mm ports were inserted. The gallbladder was identified and grasped and elevated. dissection was begun near its end. Two small vascular appearing structures were from surrounding structures and clips were placed across them and was divided leaving the clip in the patient. Near these appeared to be a major arterial structure. The cystic duct was identified and 3 clips placed across it was divided leaving 2 in the patient. The gallbladder was then dissected from its bed and liver using cautery. It was ultimately detached and removed without difficulty through the umbilical port. It was opened and a stone was found. The right upper quadrant irrigated and suctioned free of fluid. Meticulous hemostasis had been maintained throughout the operation. There was no bleeding at completion. The ports were all removed. Stay sutures at the supra umbilical incision were tied. An additional 2 0 PDS was placed between them. The wounds were irrigated. The deep subcu was closed with an interrupted 4 0 Vicryl at the supraumbilical incision. The skin in all areas were closed with interrupted 4 0 Vicryl subcuticular stitches and Steri-Strips. Band-aids were applied. The patient was awakened, extubated and taken to the recovery room in good condition. There were no apparent complications. Complications: none Condition: stable Disposition: PACU
[2018-07-28] MEDS: ACETAMINOPHEN IV 1,000 MG/100 ML VIAL 400 MG IV (10:28)
--- NOTE | 2018-07-28 11:02 | CM.IDA ---
Discharge Planning/Care Management CM Discharge Assessment Start: 07/28/18 10:52 Freq: Status: Active Protocol: Document 07/28/18 10:52 BRENT (Rec: 07/28/18 11:02 BRENT [id number]) Discharge Planning Assessment Assigned Shipper/Receiver SHAQUILLE Gómez DPOA/Assigned Designee Name Jennifer Denis, spouse Contact Information [phone] Advance Directives? No Advance Directives on File No History Provided By Patient Medical Record Prior Living Arrangements Apartment/Condo Household Members spouse Type of transporation used prior to Drives own vehicle admit Comment Works at [employer] with ADL's Yes Is patient alert and oriented? Yes Barriers to Discharge No Comment Pt Inpt vs obs (?) for ibrahima jones, followed by general surgery team. Payer: [employer]rios. Reviewed chart. Pt is a 37 yo gentleman, works at [employer]. Pt w/ h/o migraines and cyclical vomiting syndrome treated w/ Zofran. Following closely as medical POC unfolds and in the event that DC needs or concerns arise. SHAQUILLE Cabarl Discharge Plan Home Transportation Arrangement Family Referrals Initiated None needed Additional Comment Following. Review Status In Process
[2018-07-28] MEDS: OXYCODONE/ACETAMINOPHEN 5/325 TABLET 2 TAB PO ×2 (16:46→17:52)
--- NOTE | 2018-07-28 21:59 | PM.PNPO.1 ---
Subjective Date Patient Seen: 07/28/18 Time Patient Seen: 21:59 Interval history: Patient having severe back pain across his back. The narcotics he is prescribed on holding him. Exam Vital Signs (past 8 hours): - 07/28/18 14:24 07/28/18 15:15 07/28/18 16:00 Temperature 99.2 F 98.3 F Pulse Rate 99 H 87 Respiratory Rate 16 16 Blood Pressure 122/78 117/71 Pulse Oximetry 99 92 92 07/28/18 19:30 07/28/18 21:16 Temperature 99.4 F Pulse Rate 109 H 103 H Respiratory Rate 18 16 Blood Pressure 128/69 Pulse Oximetry 96 Oxygen Delivery Method Room Air Oxygen Flow Rate 0 Narrative Exam Narrative: Abdomen is soft nontender. Band-Aids intact. Objective Labs Result Diagrams: 07/27/18 18:35 07/27/18 18:35 Assessment & Plan Post-op Postoperative Procedures Operation Date: 07/28/18 07:15 Actual Procedures Side Surgeon p Laparoscopic Cholecystectomy Scout Hawkins MD Postoperative status narrative: Suspected pain is related to insufflation with gas. Quality VTE Deep Vein Thrombosis/Pulmonary Embolism Present on Admission: No
--- NOTE | 2018-07-28 22:11 | PC.NURSE ---
1900: Assumed care of pt at 1900. Pt resting in bed during bedside hand-off. Drsgs to abd c/d/i. BS hypoactive, reports flatus. Reports chronic back pain. Family in room, awaiting for MD to round for possible d/c to home. 2029: Pt c/o nausea w/o emesis, medicated with zofran. Reports chronic back pain remains, paged MD awaiting return call. 0: MD arrives, d/c to home will be 0800 tomorrow morning. Analgesics changed to address chronic back pain.
[2018-07-29] VITALS (7 sets, daily range): BP systolic 124–134; BP diastolic 66–84; PULSE 75–90; RESP 16–18; TEMP 36.3–36.9; O2SAT 88–98
[2018-07-29] MEDS: LORazepam 2 MG/ML SYRINGE 0.5 MG IV (00:05)
[2018-07-29] MEDS: ENOXAPARIN 40 MG/0.4 ML SYRINGE SUBCUT (00:06)
[2018-07-29] MEDS: OXYCODONE IR 10 MG TABLET PO ×2 (00:06→10:36)
--- NOTE | 2018-07-29 08:35 | PM.DS.1 ---
History of Present Illness Date Patient Seen: 07/29/18 Time Patient Seen: 08:35 Chief complaint: chest pains in the middle, and right side Narrative: 37-year-old male who presented with right upper quadrant abdominal pain to the emergency department recently. Examination and evaluation were consistent with large gallstone in the neck and mild cholecystitis. He was admitted for pain control and IV fluid hydration. He was taken for elective laparoscopic cholecystectomy during this admission. Discharge Providers Date of admission: 07/27/18 21:23 Discharge Date: 07/29/18 Primary care physician: DONYA Galvez Consults: 07/28/18 08:00 Consult to Respiratory Therapy Evaluate & Treat Comment: Physician Instructions: Evaluate and treat 07/28/18 11:24 Consult to Discharge Planning Routine Comment: 07/29/18 02:52 Consult to Respiratory Therapy Evaluate & Treat Comment: Physician Instructions: Evaluate and treat Discharge provider: Colin Johns MD Summary Discharge Diagnosis: Cholelithiasis with cholecystitis Laparoscopic cholecystectomy July 28 2018 Asthma (Chronic) Cyclical vomiting (Chronic) Diabetes (Chronic) HTN (hypertension) (Chronic) Migraines (Chronic) Sleep apnea (Chronic) H/O arthroscopy of knee (Resolved) Hospital Course: Patient was admitted for pain control and bowel rest. He was taken to the operating room for elective laparoscopic cholecystectomy as above which he tolerated well. Postoperatively he had some difficulties with mild nausea and pain control. By postoperative day 1 these issues had resolved. His pain is currently well controlled with oral analgesia. He is ambulating without difficulty. He has had return of bowel and bladder function. Tolerating a regular diet. He has been afebrile and completely hemodynamically stable since surgery. Incisions are healing nicely without evidence of any infections or other acute complications. Because of his stable condition he is discharged home on postoperative day 1. He will follow up in approximately 2 weeks in the surgery clinic. He understands, however, to call or return sooner if he has any fever, chills, nausea, vomiting, inability to tolerate a diet, progressive pain, or wound drainage. All questions were answered to his satisfaction, and he voiced understanding. Status at Discharge Cognitive/behavioral status at discharge: oriented Functional status at discharge: independent ambulation Overall status at discharge: patient is progressing back to baseline Time Spent with Patient Less than 30 minutes Exam Vital Signs (past 8 hours): - 07/29/18 00:40 07/29/18 04:45 07/29/18 07:25 Temperature 98.0 F Pulse Rate 90 Respiratory Rate 18 Blood Pressure 132/84 Pulse Oximetry 94 96 94 Oxygen Delivery Method Room Air Oxygen Flow Rate 0 Narrative Exam Narrative: Well-nourished well-developed obese male in no acute distress. Alert oriented x3 Sclera nonicteric Regular rate and rhythm. No wheezes Abdomen soft and nondistended. He is appropriately tender at his incisions but certain without guarding or rebound. Wounds are clean, dry, and intact. Extremities show no clubbing or cyanosis Objective Labs Result Diagrams: 07/27/18 18:35 07/27/18 18:35 Discharge Plan Discharge Plan Patient Disposition: Home Discharge Med Rec/Prescriptions Prescriptions: New oxycodone-acetaminophen [Percocet] 5-325 mg tablet See Rx Instructions .ROUTE .COMPLEX PRN (Reason: painful procedure) Qty: 14 RF: 0 sennosides [Senokot] 8.6 mg tablet 8.6 mg PO BEDTIME Qty: 10 RF: 1 docusate sodium [Colace] 100 mg capsule 100 mg PO BID Qty: 14 RF: 1 Continued CA PANTOTHENATE/FOLIC ACID/VIT (MULTIVITAMIN) 1 tab PO QDAY Qty: 0 RF: 0 Fish Oil (Fish Oil 500 MG Softgel) 500 mg PO QDAY Qty: 0 RF: 0 OMEPRAZOLE 20 mg PO DAILY Qty: 0 RF: 0 lorazepam 1 MG tablet 1 mg PO Q4HP PRNQty: 0 RF: 0 ondansetron 4 mg Tablet,Disintegrating 4 mg PO TID PRN (Reason: Nausea) RF: 0 cholecalciferol (vitamin D3) 2,000 unit capsule 2,000 unit PO DAILY RF: 0 erenumab-aooe [Aimovig Autoinjector (2 Pack)] 70 mg/mL auto-injector 140 mg SUBCUT QMONTH Qty: 2 RF: 11 metformin 500 mg tablet 500 mg PO DAILY RF: 0 Follow up/Referrals: Scout Hawkins MD [Physician] - Leigha Ryder ARNP [Primary Care Provider] - Provider Discharge Instructions Diet: Diet as Tolerated Activity: do not lift over 10 lb, pushing heavy objects or straining for the next 4 weeks. Avoid pool or tub for 2 weeks. You may remove Band-Aids in 2 days and shower. Leave tape under gauze fall off on its own. Skin/Wound/Dressing Care Report to your healthcare provider any signs of infection, such as:: increased pain, unusual drainage and unusual redness Visit Report/Discharge Packet Instructions: DI for Cholecystectomy, How to Prevent Falls, DI for Postoperative Pain Stand Alone Forms: Surgery Discharge Discharge Data Primary Care Provider: Leigha Ryder Attending Provider: Scout Hawkins Admit Date/Time: 07/27/18 21:23 Quality VTE Deep Vein Thrombosis/Pulmonary Embolism Present on Admission: No
--- NOTE | 2018-07-29 15:03 | PC.NURSE ---
Addendum entered by Rosana Reece R.N. 07/29/18 15:39: Pt given copy of work excuse note, pt not satisfied with wording of note, 's office called, spoke with Dr. Johns. Stated for pt's work place to fax needed paperwork to the 's office to fill out. Reported this to pt. Pt left unit via wheelchair with [employer] at 1535 in no distress. Original Note: Day Shift- Pt tolerating PRN Oxycodone. Effective pain management. Chronic back pain was 2-3/10, abd pain 3-4/10. Tolerating meals, no nausea. Reviewed [employer] summary packet around 1320. 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 This RN offered pt to retrieve work note from Dr. Hawkins's office either today or on Wednesday. Pt wanted this RN to try to get a hold of Dr. Johns recreational programs director for work note prior to discharging home. Dr. Johns contact by RN coordinator, will be up this afternoon to write note. 's office called at follow up visit made. Family at bedside to drive pt home.
--- NOTE | 2018-07-29 15:12 | CM.DPNOTE ---
DC home today as expected, no barriers or SW needs per Dr Johns and RN. Jocelyne Qureshi MSW
== END 2018-07-29 15:35 | disposition home or self-care (01) ==
LOC: ED 20:15 → AC 07-28 07:09
PROVIDERS: Admitting Provider Specialist; Emergency Provider Emergency Medicine; PCP Nurse Practitioner; Visit Provider Specialist
PROC: 0FT44ZZ Resection of Gallbladder, Percutaneous Endoscopic Approach (ICD-10-PCS; CPT 47562; principal; 2018-07-28 07:15)
DX: K80.20 Calculus of gallbladder without cholecystitis without obstruction (principal); R10.13 Epigastric pain; J45.909 Unspecified asthma, uncomplicated; E11.9 Type 2 diabetes mellitus without complications; I10 Essential (primary) hypertension; G43.909 Migraine, unspecified, not intractable, without status migrainosus; G47.30 Sleep apnea, unspecified; Z87.891 Personal history of nicotine dependence; Z79.84 Long term (current) use of oral hypoglycemic drugs
CPT/HCPCS: 47562; 36591; 71045; 76700; 80053; 81003; 82550; 82553; 83690; 84484; 85025; 85379; 93005; 94660; 94760; 94762; 99220; 99283; 99285; G0378; J0131; J0690; J1170; J1650; J2060; J2405

== ENCOUNTER 2018-08-03 09:34 | Observation (INO) | payer OTHER, SELFPAY ==
[2018-07-29 13:48] VITALS: BMI 37.7
--- NOTE | 2018-08-03 | DI.CT.S_ITS ---
PROCEDURE: CT ABDOMEN PELVIS W CON INDICATIONS: lap choly 6 days ago. upper abdominal pain/n/v. cause? TECHNIQUE: After the administration of intravenous contrast, 5 mm thick sections acquired from the diaphragm to the symphysis. 5 mm coronal and sagittal reformats were acquired. For radiation dose reduction, the following was used: automated exposure control, adjustment of mA and/or kV according to patient size. COMPARISON: [facility], , US ABDOMEN COMPLETE, 07/27/2018, 19:30. FINDINGS: Image quality: Excellent. ABDOMEN: Lung bases: Lung bases are clear. Heart size is normal. Solid organs: Gallbladder is surgically absent. There is mild stranding and a trace amount of fluid in the gallbladder fossa. No drainable ring-enhancing fluid collection to suggest abscess at this time. There is diffuse hepatic infiltration. Liver is normal in size and enhancement. Biliary system is non dilated. Pancreas enhances normally. Spleen is normal in size and enhancement. No adrenal nodules. Kidneys demonstrate normal size and enhancement, without hydronephrosis. Peritoneum and bowel: Bowel loops demonstrate normal wall thickness and caliber. Normal appendix. No free fluid or air. Nodes and vessels: No retroperitoneal or mesenteric adenopathy by size criteria. Aorta and inferior vena cava are normal in size. Miscellaneous: There is fat stranding in the anterior abdominal wall just above the umbilicus. Small fat-containing umbilical hernia is noted. PELVIS: Genitourinary: Bladder wall thickness is normal. Miscellaneous: No inguinal hernias or adenopathy. Bones: No suspicious bony lesions. No vertebral body compression fractures. IMPRESSION: 1. Cholecystectomy. There is mild stranding and a trace amount of fluid in the gallbladder fossa, most likely secondary to postsurgical change. No drainable ring-enhancing fluid collection to suggest abscess at this time. 2. Mild stranding in the intra-abdominal wall above the umbilicus. 3. Hepatic steatosis. 4. Small fat-containing umbilical hernia. Dictated by: Hanh Brody M.D. on 08/03/2018 at 11:49 Approved by: Hanh Brody M.D. on 08/03/2018 at 12:20
--- NOTE | 2018-08-03 09:59 | PM.HP.1 ---
History of Present Illness Date Patient Seen: 08/03/18 Time Patient Seen: 09:30 Chief complaint: NAUSEA/VOMITING Narrative: The patient is a gentleman who had a laparoscopic cholecystectomy 6 days ago. He has a vomiting syndrome that predates his operation. He developed upper abdominal pain and persistent nausea and vomiting. The pain began yesterday or the day before but the vomiting began about 8 hr ago and has been intractable. He can't keep anything down. He was found to be tachycardic and hypotensive in our office and I decided to bring him in for observation and to evaluate him for possible problem related to his operation. Of note, the patient describes dark stools. He is not sure he would call them black. He has not been vomiting blood. Patient History Medical History Asthma (Chronic) Cyclical vomiting (Chronic) Diabetes (Chronic) HTN (hypertension) (Chronic) Migraines (Chronic) Sleep apnea (Chronic) Surgical History H/O arthroscopy of knee (Resolved) Family History Father Cancer Social History household members: spouse Smoking Status: Former smoker Family & Social History Family History Father Cancer Social History: household members spouse Tobacco & Substance use: Smoking Status Former smoker alcohol intake frequency holiday/special occasion Substance Use Type does not use Meds Home Medications Medication Instructions Recorded Confirmed Type CA PANTOTHENATE/FOLIC ACID/VIT 1 tab PO QDAY #0 09/26/12 08/03/18 History (MULTIVITAMIN) Fish Oil (Fish Oil 500 MG Softgel) 500 mg PO QDAY #0 09/26/12 08/03/18 History OMEPRAZOLE 20 mg PO DAILY #0 09/26/12 08/03/18 History lorazepam 1 mg PO Q4HP PRN #0 01/15/17 08/03/18 History cholecalciferol (vitamin D3) 2,000 2,000 unit PO DAILY 03/07/18 08/03/18 History unit capsule erenumab-aooe 70 mg/mL 140 mg SUBCUT QMONTH #2 ml 03/07/18 08/03/18 Rx subcutaneous auto-injector metformin 500 mg tablet 500 mg PO DAILY 03/07/18 08/03/18 History ondansetron 4 mg PO TID PRN 07/28/18 08/03/18 History oxycodone-acetaminophen [Percocet] See Rx Instructions .ROUTE 07/28/18 08/03/18 Rx .COMPLEX PRN #14 tab docusate sodium [Colace] 100 mg PO BID #14 cap 07/29/18 08/03/18 Rx sennosides [Senokot] 8.6 mg PO BEDTIME #10 tab 07/29/18 08/03/18 Rx Allergies Allergy/AdvReac Type Severity Reaction Status Date / Time naproxen [NAPROXEN] Allergy Unknown Verified 08/03/18 09:06 Review of Systems Review of Systems No heart problems he is aware of. Is diabetic. Controls sugar with the injections and metformin. No dysuria or hematuria. No seizures or blackouts. Exam Narrative Exam Narrative: Patient laying on his left side with a blue bag in his hand in case he vomits. Moves well to his back. His lungs are clear to auscultation. No rales or rhonchi. Heart regular rate and rhythm without murmur gallop. Abdomen is protuberant soft. There is no unusual tenderness. There is no guarding. His op sites look fine. Steri-Strips are intact. No cellulitis. Assessment & Plan Assessment & Plan narrative: Diabetic gentleman with a cyclic vomiting syndrome who is post lap choly. I need to rule out an intra-abdominal injury or bile leak etc before concluding this is related to his cyclic vomiting or perhaps his pain medication. He is tachycardic and hypotensive so we will give him a bolus of fluid. Labs have been ordered. CT scan has been ordered. Depending on findings on his labs may need an EGD. Given the fact that he is not vomiting blood or coffee-grounds but rather bilious material I think it unlikely this is related to an upper GI bleed. His dark stools may just be that. The labs should help me showed sort that out a bit. If he has dropped his hematocrit then I will scope him. NPO for now. Anti nausea meds prescribed.
[2018-08-03 10:04] VITALS: BP 135/76; PULSE 102; RESP 20; TEMP 36.8; O2SAT 98
[2018-08-03] MEDS: LACTATED RINGERS 1,000 ML 1000 ML IV (10:15)
[2018-08-03] MEDS: SCOPOLAMINE 1 PATCH TOP (10:16)
[2018-08-03] MEDS: ONDANSETRON 4 MG/2 ML INJ IV (10:16)
[2018-08-03] MEDS: MORPHINE 2 MG/ML INJ IV (10:21)
[2018-08-03 10:24] VITALS: BMI 35.9
[2018-08-03 10:24] LABS: Add Manual Diff / Slide Review NO; Basophils Absolute Auto 0 /uL (0-100); Basophils Percent Auto 0.4 % (0-2); Eosinophils Absolute Auto 100 /uL (0-450); Eosinophils Percent Auto 0.7 % (2-4); Hematocrit 53.2 % (41-53); Hemoglobin 18.6 g/dL (13.5-17.5); Lymphocytes Absolute Auto 800 /uL (1100-4500); Lymphocytes Percent Auto 7.3 % (25-40); Mean Corpuscular HGB Conc 34.9 % (30-36); Mean Corpuscular Hemoglobin 30.4 PG (26-34); Mean Corpuscular Volume 87.1 fL (80-100); Monocytes Absolute Auto 800 /uL (0-900); Monocytes Percent Auto 7.2 % (3-14); Neutrophils Absolute Auto 9200 /uL (1500-7000); Neutrophils Percent Auto 84.4 % (50-75); Platelet Count 223 X10^3/uL (150-400); Red Blood Cell Count 6.11 X10^6/uL (4.5-5.9); Red Cell Distribution Width 13.3 % (11.6-14.8); White Blood Cell Count 10.9 X10^3/uL (4.5-11.0)
--- NOTE | 2018-08-03 10:39 | PC.NURSE ---
[address] Hawkins office, Pt POD#6 from a lap cholie, via w/c. Pt is a&0x3, c/o abd pain and nausea, no emesis at this time. Pt states has had diarrhea & vomiting for 3 days. States was visiting his dtr a few days back, she has stomach flu. Pt afebrile. abd is lge , round, obese. Steri strips intact to lap sites. BS + x4 . 1015 IVF bolus infusing, Pt med for c/o nausea & abd pain. VS WNL, family at bedside. Pt is a diabetic, glucose now 121. [address] abd this AM. Pt taking in contrast w/o n/v.
[2018-08-03 10:43] LABS: Alanine Aminotransferase 61 IU/L (21-72); Albumin 4.6 g/dL (3.5-5.0); Albumin Globulin Ratio 1.4 (1.0-2.8); Alkaline Phosphatase 58 U/L (38-126); Aspartate Aminotransferase 29 IU/L (17-59); Bilirubin Total 1.4 mg/dL (0.2-1.3); Blood Urea Nitrogen 20 mg/dL (9-20); Calcium 9.7 mg/dL (8.4-10.2); Carbon Dioxide 22 mmol/L (22-32); Chloride 103 mmol/L (98-107); Estimated Glomerular Filt Rate > 60.0 mL/min (>60); Globulin 3.3 g/dL (1.7-4.1); Glucose 133 mg/dL (70-100); HEMOLYSIS 19 (0-50); Magnesium 1.9 mg/dL (1.6-2.3); Potassium 4.3 mmol/L (3.4-5.1); Sodium 137 mmol/L (137-145); Total Protein 7.9 g/dL (6.3-8.2)
[2018-08-03] MEDS: LACTATED RINGERS 1,000 ML 150 ML IV ×3 (11:16→22:18)
[2018-08-03] MEDS: PANTOPRAZOLE 40 MG VIAL IV (11:40)
[2018-08-03 12:00] VITALS: BP 140/72; PULSE 95; RESP 18; TEMP 36.6; O2SAT 98
--- NOTE | 2018-08-03 12:53 | P.HP_ITS ---
History of Present Illness Chief complaint: NAUSEA/VOMITING Narrative: The patient is a gentleman who had a laparoscopic cholecystectomy 6 days ago. He has a vomiting syndrome that predates his operation. He developed upper abdominal pain and persistent nausea and vomiting. The pain began yesterday or the day before but the vomiting began about 8 hr ago and has been intractable. He can't keep anything down. He was found to be tachycardic and hypotensive in our office and I decided to bring him in for observation and to evaluate him for possible problem related to his operation. Of note, the patient describes dark stools. He is not sure he would call them black. He has not been vomiting blood. Patient History Medical History Asthma (Chronic) Cyclical vomiting (Chronic) Diabetes (Chronic) HTN (hypertension) (Chronic) Migraines (Chronic) Sleep apnea (Chronic) Surgical History H/O arthroscopy of knee (Resolved) Family History Father Cancer Social History household members: spouse Smoking Status: Former smoker Family & Social History Family History Father Cancer Social History: household members spouse Prior Living Arrangements Apartment/Condo Safety & Behavioral: Feels Safe in Current Yes Environment Been Physically Hurt or No Threatened By a Person Suicidal Ideation Description None Suicide Plan Description No Plan Tobacco & Substance use: Smoking Status Former smoker alcohol intake frequency holiday/special occasion Substance Use Type does not use Meds Home Medications Medication Instructions Recorded Confirmed Type CA PANTOTHENATE/FOLIC ACID/VIT 1 tab PO QDAY #0 09/26/12 08/03/18 History (MULTIVITAMIN) Fish Oil (Fish Oil 500 MG Softgel) 500 mg PO QDAY #0 09/26/12 08/03/18 History OMEPRAZOLE 20 mg PO DAILY #0 09/26/12 08/03/18 History lorazepam 1 mg PO Q4HP PRN #0 01/15/17 08/03/18 History cholecalciferol (vitamin D3) 2,000 2,000 unit PO DAILY 03/07/18 08/03/18 History unit capsule erenumab-aooe 70 mg/mL 140 mg SUBCUT QMONTH #2 ml 03/07/18 08/03/18 Rx subcutaneous auto-injector metformin 500 mg tablet 500 mg PO DAILY 03/07/18 08/03/18 History ondansetron 4 mg PO TID PRN 07/28/18 08/03/18 History oxycodone-acetaminophen [Percocet] See Rx Instructions .ROUTE 07/28/18 08/03/18 Rx .COMPLEX PRN #14 tab docusate sodium [Colace] 100 mg PO BID #14 cap 07/29/18 08/03/18 Rx sennosides [Senokot] 8.6 mg PO BEDTIME #10 tab 07/29/18 08/03/18 Rx Allergies Allergy/AdvReac Type Severity Reaction Status Date / Time naproxen [NAPROXEN] Allergy Unknown Verified 08/03/18 09:06 Review of Systems Review of Systems No breathing issues. No dysuria. No seizures or blackouts. No chest pain or heart problems. Exam Vital Signs (past 8 hours): - 08/03/18 10:04 08/03/18 12:00 Temperature 98.2 F 97.8 F Pulse Rate 102 H 95 H Respiratory Rate 20 18 Blood Pressure 135/76 140/72 Pulse Oximetry 98 98 Narrative Exam Narrative: Obese cooperative no apparent distress. Objective Labs Result Diagrams: 08/03/18 10:10 08/03/18 10:10 Labs: Laboratory Results - last 24 hr 08/03/18 08/03/18 10:10 10:10 WBC 10.9 RBC 6.11 H Hgb 18.6 H Hct 53.2 H MCV 87.1 MCH 30.4 MCHC 34.9 RDW 13.3 Plt Count 223 Neut % (Auto) 84.4 H Lymph % (Auto) 7.3 L [place] % (Auto) 7.2 Eos % (Auto) 0.7 L Baso % (Auto) 0.4 Neut # (Auto) 9200 H Lymph # (Auto) 800 L [place] # (Auto) 800 Eos # (Auto) 100 Baso # (Auto) 0 Sodium 137 Potassium 4.3 Chloride 103 Carbon Dioxide 22 BUN 20 Creatinine 1.00 Estimated GFR > 60.0 BUN/Creatinine Ratio 20.0 Glucose 133 H Calcium 9.7 Magnesium 1.9 Total Bilirubin 1.4 H AST 29 ALT 61 Alkaline Phosphatase 58 Total Protein 7.9 Albumin 4.6 Globulin 3.3 Albumin/Globulin Ratio 1.4
--- NOTE | 2018-08-03 12:54 | PM.PN.1 ---
Subjective Date Patient Seen: 08/03/18 Time Patient Seen: 12:54 Exam Vital Signs (past 8 hours): - 08/03/18 10:04 08/03/18 12:00 Temperature 98.2 F 97.8 F Pulse Rate 102 H 95 H Respiratory Rate 20 18 Blood Pressure 135/76 140/72 Pulse Oximetry 98 98 Objective Labs Result Diagrams: 08/03/18 10:10 08/03/18 10:10 Labs: Laboratory Results - last 24 hr 08/03/18 08/03/18 10:10 10:10 WBC 10.9 RBC 6.11 H Hgb 18.6 H Hct 53.2 H MCV 87.1 MCH 30.4 MCHC 34.9 RDW 13.3 Plt Count 223 Neut % (Auto) 84.4 H Lymph % (Auto) 7.3 L [place] % (Auto) 7.2 Eos % (Auto) 0.7 L Baso % (Auto) 0.4 Neut # (Auto) 9200 H Lymph # (Auto) 800 L [place] # (Auto) 800 Eos # (Auto) 100 Baso # (Auto) 0 Sodium 137 Potassium 4.3 Chloride 103 Carbon Dioxide 22 BUN 20 Creatinine 1.00 Estimated GFR > 60.0 BUN/Creatinine Ratio 20.0 Glucose 133 H Calcium 9.7 Magnesium 1.9 Total Bilirubin 1.4 H AST 29 ALT 61 Alkaline Phosphatase 58 Total Protein 7.9 Albumin 4.6 Globulin 3.3 Albumin/Globulin Ratio 1.4 Assessment & Plan Assessment & Plan narrative: Reviewed patient's CT scan and labs. There does not seem to have been any surgical misadventure. There is no leaking of contrast and no fluid in the abdomen suggested AA bile leak. Labs are pretty much as expected. His hematocrit is actually higher than discharge due to dehydration. Is unlikely is having a GI bleed. Will bring his nausea under control and start him back on a diet and hopefully we can discharge him.
[2018-08-03] MEDS: LACTATED RINGERS 500 ML 1000 ML IV (13:15)
[2018-08-03] MEDS: PROCHLORPERAZINE 10 MG/2 ML VIAL IV ×2 (13:23→20:27)
[2018-08-03 15:45] VITALS: BP 119/66; PULSE 94; RESP 18; TEMP 36.8; O2SAT 96
[2018-08-03 20:10] VITALS: BP 133/65; PULSE 89; RESP 20; TEMP 37.1
[2018-08-03] MEDS: ACETAMINOPHEN 325 MG TABLET 650 MG PO (20:27)
[2018-08-03 23:45] VITALS: BP 110/69; PULSE 71; RESP 16; TEMP 36.9; O2SAT 99
[2018-08-04 03:38] VITALS: BP 130/74; PULSE 70; RESP 16; TEMP 36.6; O2SAT 96
[2018-08-04] MEDS: LACTATED RINGERS 1,000 ML 150 ML IV (05:10)
[2018-08-04 08:30] VITALS: BP 111/69; PULSE 69; RESP 18; TEMP 36.7; O2SAT 100
--- NOTE | 2018-08-04 11:20 | PC.NURSE ---
Pt tolerating food and fluids. Tests are neg. Seen by surgeon and discharged home. IV removed.
--- NOTE | 2018-08-04 12:01 | P.DS_ITS ---
History of Present Illness Chief complaint: NAUSEA/VOMITING Discharge Providers Date of admission: 08/03/18 09:34 Discharge Date: 08/04/18 Primary care physician: DONYA Galvez Consults: 08/03/18 09:37 Consult to Discharge Planning Routine Comment: 08/03/18 10:33 Consult to Pastoral Services Routine Comment: yuliana cobian per patient report Discharge provider: Scout Hawkins MD Summary Discharge Diagnosis: Nausea and vomiting Diabetes mellitus type 2 chronic Hospital Course: Patient was brought in for observation. He underwent a CT scan of the abdomen and various labs. There was no evidence of any intra- abdominal/operative cause for his nausea and vomiting. It is believed to have been related to his on going cyclic vomiting syndrome. Also possibly related to his narcotics. Status at Discharge Cognitive/behavioral status at discharge: oriented Functional status at discharge: independent ambulation Overall status at discharge: patient is back to baseline Exam Vital Signs (past 8 hours): - 08/04/18 08:30 Temperature 98.0 F Pulse Rate 69 Respiratory Rate 18 Blood Pressure 111/69 Pulse Oximetry 100 Oxygen Flow Rate 0 Narrative Exam Narrative: No apparent distress. Lungs clear heart regular rate and rhythm abdomen protuberant soft his wounds all look fine Objective Labs Result Diagrams: 08/03/18 10:10 08/03/18 10:10 Discharge Plan Discharge Plan Patient Disposition: Home Discharge comment: Your vomiting was most likely related to your sick leak vomiting syndrome. Her labs and x-rays were all unremarkable for any serious issues that might have caused year vomiting. You may take ibuprofen for her pain as your Percocet(oxycodone) may have been the source of some of your nausea. Discharge Med Rec/Prescriptions Prescriptions: Continued CA PANTOTHENATE/FOLIC ACID/VIT (MULTIVITAMIN) 1 tab PO QDAY Qty: 0 RF: 0 Fish Oil (Fish Oil 500 MG Softgel) 500 mg PO QDAY Qty: 0 RF: 0 OMEPRAZOLE 20 mg PO DAILY Qty: 0 RF: 0 lorazepam 1 MG tablet 1 mg PO Q4HP PRN (Reason: Anxiety) Qty: 0 RF: 0 ondansetron 4 mg Tablet,Disintegrating 4 mg PO TID PRN (Reason: Nausea) RF: 0 sennosides [Senokot] 8.6 mg tablet 8.6 mg PO BEDTIME Qty: 10 RF: 1 docusate sodium [Colace] 100 mg capsule 100 mg PO BID Qty: 14 RF: 1 cholecalciferol (vitamin D3) [Vitamin D3] 2,000 unit capsule 2,000 unit PO DAILY RF: 0 erenumab-aooe [Aimovig Autoinjector (2 Pack)] 70 mg/mL auto-injector 140 mg SUBCUT QMONTH Qty: 2 RF: 11 metformin 500 mg tablet 500 mg PO DAILY RF: 0 Discontinued oxycodone-acetaminophen [Percocet] 5-325 mg tablet See Rx Instructions .ROUTE .COMPLEX PRN (Reason: painful procedure) Qty: 14 RF: 0 Follow up/Referrals: Leigha Ryder ARNP [Primary Care Provider] - Provider Discharge Instructions Diet: Diet as Tolerated Activity: Avoid straining or lifting over 10 lb or pushing heavy objects for another 3 weeks. You may shower. You may walk. Skin/Wound/Dressing Care Report to your healthcare provider any signs of infection, such as:: increased pain Discharge Data Primary Care Provider: Leigha Ryder Attending Provider: Scout Hawkins Admit Date/Time: 08/03/18 09:34 Discharges patient from system. Discharge Date/Time: 08/04/18 11:20
== END 2018-08-04 11:20 | disposition home or self-care (01) ==
PROVIDERS: Admitting Provider Specialist; PCP Nurse Practitioner; Visit Provider Specialist
DX: R11.2 Nausea with vomiting, unspecified (principal); J45.909 Unspecified asthma, uncomplicated; E11.9 Type 2 diabetes mellitus without complications; I10 Essential (primary) hypertension; G43.909 Migraine, unspecified, not intractable, without status migrainosus; G47.33 Obstructive sleep apnea (adult) (pediatric); Z90.49 Acquired absence of other specified parts of digestive tract; Z98.890 Other specified postprocedural states; Z79.84 Long term (current) use of oral hypoglycemic drugs
CPT/HCPCS: 36415; 74177; 80053; 82962; 83735; 85025; G0378; C9113; G0379; J0780; J2270; J2405; Q9967

== ENCOUNTER → 2019-01-30 14:01 | Outpatient (CLI) | payer OTHER, SELFPAY ==
--- NOTE | 2019-01-30 | DI.CT.S_ITS ---
PROCEDURE: CT ABDOMEN PELVIS W CON INDICATIONS: RUQ PAIN,EPIGASTRIC PAIN TECHNIQUE: After the administration of oral and intravenous contrast, 5 mm thick sections acquired from the diaphragms to the symphysis. 5 mm thick coronal and sagittal reformats were performed. For radiation dose reduction, the following was used: automated exposure control, adjustment of mA and/or kV according to patient size. COMPARISON: None. FINDINGS: Image quality: Excellent. ABDOMEN: Lung bases: Lung bases are clear. Heart size is normal. Solid organs: Liver is normal in size and enhancement. Diffuse fatty liver infiltration is noted. Gallbladder has been removed. Biliary system is non-dilated. Pancreas enhances normally. Spleen is normal in size and enhancement. No adrenal nodules. Kidneys are normal in size and enhancement, without hydronephrosis. Peritoneum and bowel: Stomach, small bowel, and colon loops are normal in caliber and wall thickness. No free fluid or air. Nodes and vessels: No retroperitoneal or mesenteric adenopathy. Aorta and inferior vena cava are normal in caliber. Miscellaneous: A mild periumbilical hernia is seen, containing fat. PELVIS: Genitourinary: Bladder wall thickness is normal. Miscellaneous: No enlarged inguinal or pelvic lymph nodes are seen. There is a mild fat-containing left inguinal hernia seen. Bones: No suspicious bony lesions. No vertebral body compression fractures. IMPRESSION: No significant abnormality is seen to explain the patient's presenting history. Prior cholecystectomy, without biliary dilatation Incidental note is made of: Fatty liver infiltration Fat-containing periumbilical hernia Mild fat-containing left inguinal hernia Dictated by: Giancarlo Knapp M.D. on 01/30/2019 at 15:37 Approved by: Giancarlo Knapp M.D. on 01/30/2019 at 15:39
[2019-01-30 14:54] LABS: Alanine Aminotransferase 75 IU/L (21-72); Albumin 4.4 g/dL (3.5-5.0); Albumin Globulin Ratio 1.4 (1.0-2.8); Alkaline Phosphatase 58 U/L (38-126); Aspartate Aminotransferase 39 IU/L (17-59); Bilirubin Total 0.8 mg/dL (0.2-1.3); Blood Urea Nitrogen 16 mg/dL (9-20); Calcium 9.1 mg/dL (8.4-10.2); Carbon Dioxide 31 mmol/L (22-32); Chloride 100 mmol/L (98-107); Estimated Glomerular Filt Rate > 60.0 mL/min (>60); Globulin 3.1 g/dL (1.7-4.1); Glucose 96 mg/dL (70-100); HEMOLYSIS < 15 (0-50); Sodium 140 mmol/L (137-145); Total Protein 7.5 g/dL (6.3-8.2)
== END ==
PROVIDERS: PCP Student in an Organized Health Care Education/Training Program; Visit Provider Student in an Organized Health Care Education/Training Program
DX: R10.11 Right upper quadrant pain (principal); R10.13 Epigastric pain; E11.9 Type 2 diabetes mellitus without complications; K76.0 Fatty (change of) liver, not elsewhere classified; K40.90 Unilateral inguinal hernia, without obstruction or gangrene, not specified as recurrent; K42.9 Umbilical hernia without obstruction or gangrene; Z90.49 Acquired absence of other specified parts of digestive tract
CPT/HCPCS: 36415; 74177; 80053; Q9967

== ENCOUNTER → 2019-12-15 16:55 | Outpatient (CLI) | payer OTHER, SELFPAY ==
--- NOTE | 2019-12-15 | DI.MRI.S_ITS ---
PROCEDURE: MR THORACIC SPINE WO CON INDICATIONS: THORACIC PAIN TECHNIQUE: Noncontrast sagittal T1 spine echo and T2 fast spin echo, sagittal STIR, axial T1 and T2 fast spin echo through the thoracic spine. COMPARISON: [facility], , MR LUMBAR SPINE WO CON, 12/15/2019, 17:38. FINDINGS: Image quality: Excellent. Alignment and Curvature: Mild levoconvex scoliotic curvature is noted. No focal AP alignment abnormality is seen. Bone Marrow: Marrow is of normal overall signal. No acute vertebral body compression fractures. Spinal Cord: Visualized spinal cord is normal in size and signal. Paraspinous Soft Tissues: No paravertebral masses. Miscellaneous: Minimal central disc protrusions are seen at T5-T6, T6-T7, and T7-T8. No significant central canal narrowing can be seen. No neural foraminal narrowing can be seen. IMPRESSION: Mild levoconvex thoracic scoliotic curvature. Minimal central disc protrusions are seen within the midthoracic spine, without significant neural foraminal or central canal narrowing present. Dictated by: Giancarlo Knapp M.D. on 12/15/2019 at 17:35 Approved by: Giancarlo Knapp M.D. on 12/15/2019 at 17:38
--- NOTE | 2019-12-15 16:58 | DI.MRI.S_ITS ---
PROCEDURE: MR LUMBAR SPINE WO CON INDICATIONS: LOW BACK PAIN, PAIN IN THORACIC SPINE TECHNIQUE: Noncontrast sagittal T1 spin echo and T2 fast echo, sagittal STIR, axial T1 and T2 fast spin echo through the lumbar spine. In cases with scoliosis, additional coronal T2 fast spin echo may be performed. COMPARISON: [facility], CT, CT ABDOMEN PELVIS W CON, 01/30/2019, 14:58. [facility], MR, MR THORACIC SPINE WO CON, 12/15/2019, 17:06. FINDINGS: Image quality: Excellent. Alignment and Curvature: There is normal bony alignment. Bone Marrow: Marrow is of normal overall signal. No acute vertebral body compression fractures. Spinal Cord: Conus medullaris terminates at the T12-L1 level. Visualized cord demonstrates normal signal and size. Paraspinous Soft Tissues: No paravertebral masses. T12-L1: Normal appearance. L1-L2: The disc height and disk signal are well-preserved. Bridging endplate osteophytes are seen. Mild generalized disc bulge is seen. No significant neural foraminal narrowing is seen. Mild to moderate central canal narrowing is seen. L2-L3: The disc height is well-preserved. Loss of disc signal is seen at this level. There is a focal annular fissure seen posteriorly. Moderate disc bulge is seen, with a central disc protrusion. No neural foraminal narrowing is seen. Moderate central canal narrowing is seen. L3-L4: The disc height is well-preserved. Loss of disc signal is seen at this level. Moderate disc bulge is seen, which is eccentric to the right, with a right lateral recess/right foraminal disc protrusion, as on series 4, image 20 and on series 2, image 6. Mild to moderate facet hypertrophy is seen. Fluid is seen within the facet joints themselves. There is at least moderate right-sided neural foraminal narrowing seen. No significant left-sided neural foraminal narrowing is seen. Mild central canal narrowing is seen. L4-L5: The disc height is well-preserved. Loss of disc signal is seen at this level. Moderate disc bulge is seen, which is eccentric to the right. There is a central/right disc extrusion, with mild superior migration of the disc material. Mild to moderate facet hypertrophy is seen. Fluid is seen within the facet joints themselves. Moderate bilateral neural foraminal narrowing is seen, right worse than left. Moderate central canal narrowing is seen. L5-S1: The disc height and disk signal are well-preserved. Mild disc bulge is seen, which is eccentric to the right. Mild to moderate facet hypertrophy is seen. There is a central/right disc protrusion seen. There is mild bilateral neural foraminal narrowing seen. Minimal to mild central canal narrowing is seen. IMPRESSION: Multiple levels of degenerative change are seen, which are more prominent than would be expected for a patient of this age. At the L3-L4 level, there is a right lateral recess/right foraminal disc protrusion, with at least moderate right-sided neural foraminal narrowing seen. At L4-5, there is a central/right disc extrusion, with superior migration of the disc material. An annular fissure seen posteriorly at the L2-3 level. Dictated by: Giancarlo Knapp M.D. on 12/15/2019 at 17:38 Approved by: Giancarlo Knapp M.D. on 12/15/2019 at 17:43
== END ==
PROVIDERS: PCP Student in an Organized Health Care Education/Training Program; Referring Provider Student in an Organized Health Care Education/Training Program; Visit Provider Student in an Organized Health Care Education/Training Program
DX: M54.6 Pain in thoracic spine (principal); M51.26 Other intervertebral disc displacement, lumbar region; M47.816 Spondylosis without myelopathy or radiculopathy, lumbar region; M47.817 Spondylosis without myelopathy or radiculopathy, lumbosacral region; M41.84 Other forms of scoliosis, thoracic region
CPT/HCPCS: 72146; 72148

== ENCOUNTER → 2020-07-31 15:09 | Outpatient (CLI) | payer OTHER, SELFPAY ==
[2020-07-31] MEDS: COVID-19 VACC #1, MRNA(MOD) 100 MCG/0.5 ML VIAL IM (15:24)
== END ==
PROVIDERS: PCP Student in an Organized Health Care Education/Training Program; Visit Provider Internal Medicine
DX: Z23 Encounter for immunization (principal)
CPT/HCPCS: 0011A; 91301

== ENCOUNTER → 2020-08-28 15:05 | Outpatient (CLI) | payer OTHER, SELFPAY ==
[2020-08-28] MEDS: COVID-19 VACC #2, MRNA(MOD) 100 MCG/0.5 ML VIAL IM (15:18)
== END ==
PROVIDERS: PCP Student in an Organized Health Care Education/Training Program; Visit Provider Internal Medicine
DX: Z23 Encounter for immunization (principal)
CPT/HCPCS: 0012A; 91301

== ENCOUNTER → 2021-04-24 15:57 | Outpatient (CLI) | payer OTHER, SELFPAY ==
[2021-04-24 17:38] LABS: Hemoglobin A1C% w Est Avg Glu 6.5 % (4.0-6.0)
[2021-04-24 18:20] LABS: Alanine Aminotransferase 49 IU/L (<50); Albumin 4.6 g/dL (3.5-5.0); Albumin Globulin Ratio 1.6 (1.0-2.8); Alkaline Phosphatase 49 U/L (38-126); Aspartate Aminotransferase 32 IU/L (17-59); Bilirubin Total 1.1 mg/dL (0.2-1.3); Blood Urea Nitrogen 9 mg/dL (9-20); Calcium 9.4 mg/dL (8.4-10.2); Carbon Dioxide 27 mmol/L (22-32); Chloride 101 mmol/L (98-107); Cholesterol 142 mg/dL (140-199); Estimated Glomerular Filt Rate > 60.0 mL/min (>60); Globulin 2.8 g/dL (1.7-4.1); Glucose 109 mg/dL (70-100); HDL Cholesterol 35 mg/dL (40-60); HEMOLYSIS < 15 (0-50); LDL Cholesterol Calculated 81 mg/dL (<100); Potassium 3.6 mmol/L (3.4-5.1); Sodium 139 mmol/L (137-145); Total Protein 7.4 g/dL (6.3-8.2); Triglycerides 130 mg/dL (35-150)
[2021-04-24 18:25] LABS: Microalbumi Creatinin Ratio Ur 51.1 ug/mg CR (<30); Microalbumin Urine Random 4.5 mg/dL (0-1.6)
== END ==
PROVIDERS: PCP Student in an Organized Health Care Education/Training Program; Referring Provider Student in an Organized Health Care Education/Training Program; Visit Provider Student in an Organized Health Care Education/Training Program
DX: E11.9 Type 2 diabetes mellitus without complications (principal)
CPT/HCPCS: 36415; 80053; 80061; 82043; 82570; 83036

== ENCOUNTER → 2021-07-01 10:28 | Outpatient (CLI) | payer OTHER, SELFPAY ==
[2021-07-01 11:13] LABS: COVID-19 CEPHEID PCR (VTM/NP) Negative (Negative); Influenza A - CEPHEID Flu A NEGATIVE (NEGATIVE); Influenza B - CEPHEID Flu B NEGATIVE (NEGATIVE)
== END ==
PROVIDERS: PCP Student in an Organized Health Care Education/Training Program; Visit Provider Student in an Organized Health Care Education/Training Program
DX: Z20.822 Contact with and (suspected) exposure to COVID-19 (principal); J02.9 Acute pharyngitis, unspecified
CPT/HCPCS: 0240U; 87070

== ENCOUNTER → 2022-03-25 13:12 | Outpatient (CLI) | payer OTHER, SELFPAY ==
--- NOTE | 2022-03-25 13:12 | DI.RAD.S_ITS ---
PROCEDURE: XR CHEST 2V INDICATIONS: SOB and chest discomfort TECHNIQUE: 2 views of the chest were acquired. COMPARISON: [facility], , XR CHEST 1V, 07/27/2018, 18:44. FINDINGS: Surgical changes and devices: None. Lungs and pleura: Lungs are clear. No pleural effusions or pneumothorax. Mediastinum: Mediastinal contours are normal. Heart size is normal. Bones and chest wall: No suspicious bony abnormalities. Soft tissues appear unremarkable. IMPRESSION: No acute pulmonary process. Dictated by: Francia Shaw M.D. on 03/25/2022 at 13:50 Approved by: Francia Shaw M.D. on 03/25/2022 at 13:50
== END ==
PROVIDERS: Referring Provider Physician Assistant Medical; Visit Provider Physician Assistant Medical
DX: R06.02 Shortness of breath (principal); R05.9 Cough, unspecified; R07.89 Other chest pain; Z20.822 Contact with and (suspected) exposure to COVID-19
CPT/HCPCS: 0240U; 71046; 87070

== ENCOUNTER → 2022-03-25 13:27 | Outpatient (CLI) | payer OTHER, SELFPAY ==
[2022-03-25 14:57] LABS: Influenza A - CEPHEID Flu A NEGATIVE (NEGATIVE); Influenza B - CEPHEID Flu B NEGATIVE (NEGATIVE)
[2022-03-25 15:06] LABS: COVID-19 CEPHEID 4-PLEX PCR Negative (Negative)
== END ==
PROVIDERS: Visit Provider Physician Assistant Medical
DX: R05.9 Cough, unspecified (principal)
CPT/HCPCS: 0240U; 87070

== ENCOUNTER → 2022-05-11 10:24 | Outpatient (CLI) | payer OTHER, SELFPAY ==
[2022-05-11 11:26] LABS: COVID-19 CEPHEID 4-PLEX PCR Negative (Negative); Influenza A - CEPHEID Flu A POSITIVE (NEGATIVE); Influenza B - CEPHEID Flu B NEGATIVE (NEGATIVE); Respiratory Syncytial Virus POSITIVE (Negative)
== END ==
PROVIDERS: Visit Provider Physician Assistant Medical
DX: R05.9 Cough, unspecified (principal)
CPT/HCPCS: 0241U

== ENCOUNTER 2022-05-13 09:17 | Emergency (ER) | payer OTHER, SELFPAY ==
[2022-05-13 09:25] VITALS: BP 154/82; PULSE 78; RESP 15; TEMP 36.8; O2SAT 96; BMI 37.6
--- NOTE | 2022-05-13 10:56 | DI.RAD.S_ITS ---
PROCEDURE: XR CHEST 2V INDICATIONS: fall chest pain TECHNIQUE: 2 views of the chest were acquired. COMPARISON: [facility], CR, XR CHEST 2V, 03/25/2022, 13:25. FINDINGS: Surgical changes and devices: None. Lungs and pleura: Lungs are clear. No pleural effusions or pneumothorax. Mediastinum: Mediastinal contours are normal. Heart size is normal. Bones and chest wall: No suspicious bony abnormalities. Soft tissues appear unremarkable. IMPRESSION: No acute cardiopulmonary findings. Dictated by: Moni Vázquez M.D. on 05/13/2022 at 11:34 Approved by: Moni Vázquez M.D. on 05/13/2022 at 11:34
--- NOTE | 2022-05-13 11:06 | ED_ITS ---
HPI - Syncope General Chief Complaint: Syncope Stated Complaint: Poss concussion, head injury Time Seen by Provider: 05/13/22 09:46 Source: patient Mode of arrival: Ambulatory Limitations: no limitations History of Present Illness HPI narrative: Patient is a 41-year-old male history of hyperlipidemia diagnosed with RSV and influenza on 05/11/2022 presents today after syncopal episode last night while urinating and ongoing weakness and chest discomfort. He says all of his ribs hurt from coughing. It is not specifically in 1 area. However he is concerned that maybe something is broken. He says last night while urinating he got very flushed lightheaded fell to the ground. He said he could hear some things crashing his heard him. A brief episode of syncope. Did not really lose consciousness. He is had mild headaches since then he is not on any antiplatelet or anticoagulation medication. He is no numbness tingling weakness or persistent vomiting. He is able to move his neck pretty easily but says it is a little stiff and sore. He last took Tylenol last night. Related Data Home Medications Medication Instructions Recorded Confirmed OMEPRAZOLE 20 mg PO DAILY ##0 09/26/12 05/11/22 metformin 500 mg tablet 500 mg PO DAILY 03/07/18 05/11/22 ondansetron 4 mg disintegrating 4 mg PO TID PRN Nausea 07/28/18 05/11/22 tablet atorvastatin 20 mg tablet 20 mg PO DAILY 07/17/19 05/11/22 Previous Rx's Medication Instructions Recorded albuterol sulfate 90 mcg/actuation 2 puff inhalation Q6H PRN 03/25/22 aerosol inhaler shortness of breath or wheezing #8.5 grams codeine 10 mg-guaifenesin 100 mg/5 10 ml PO Q4-6H PRN cough 10 days 05/11/22 mL oral liquid #237 mL codeine 10 mg-guaifenesin 100 mg/5 10 ml PO Q4-6H PRN cough #237 mL 05/12/22 mL oral liquid Allergies Allergy/AdvReac Type Severity Reaction Status Date / Time naproxen [NAPROXEN] Allergy Severe Palpitations Verified 05/13/22 09:30 and chest tightening Review of Systems Review of Systems ROS Unobtainable: All systems reviewed & are unremarkable except as noted in HPI and below Patient History Medical History Asthma Cyclical vomiting Diabetes HTN (hypertension) Migraines Obstructive sleep apnea of adult Sleep apnea Surgical History H/O arthroscopy of knee Family History Father Cancer Social History household members: spouse Smoking Status: Former smoker Smoking Status: Former smoker alcohol intake frequency: holidays/special occasions only Substance Use Type: does not use Exam Initial Vital Signs Initial Vital Signs: Vital Signs Temperature 98.2 F 05/13/22 09:25 Pulse Rate 78 05/13/22 09:25 Respiratory Rate 15 05/13/22 09:25 Blood Pressure 154/82 H 05/13/22 09:25 Pulse Oximetry 96 05/13/22 09:25 Oxygen Delivery Method 05/13/22 09:25 GENERAL: Alert 41-year-old male appears to not feel well HEENT: Head atraumatic,EOMI, pupils reactive, face symmetric, moist mucous membranes NECK: Supple no vertebral tenderness no step-off full range of motion flexion extension and rotation no meningeal signs CARDIOVASCULAR: Regular rate and rhythm without murmurs, rubs or gallops. RESPIRATORY: Breath sounds equal bilaterally, no wheezes rales or rhonchi. No paradoxical movement no specific localization of rib pain ABDOMEN: Soft, nontender. Normoactive bowel sounds all 4 quadrants. No guarding or rebound. EXTREMITIES: Normal range of motion, no clubbing or edema. Neurovascularly intact NEUROLOGICAL: Alert and oriented x4.Normal gait and speech. Cranial nerves II through XII grossly intact. 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 Course Orders Ordered: ED Orders 05/13/22 10:56 Chest [XR chest 2V] Stat 05/13/22 12:09 Urine Microscopic Stat 05/13/22 12:43 Complete Blood Count AUTO DIFF Stat Comprehensive Metabolic Panel Stat Discontinued Medications Sodium Chloride (Normal Saline 0.9%) 1,000 mls @ 1,000 mls/hr IV BOLUS ONE Stop: 05/13/22 11:55 Last Infusion: 05/13/22 13:49 Dose: 0 mls/hr Documented By: Admin: 05/13/22 12:45 Dose: 1,000 mls/hr Documented By: DIMITRI Ketorolac Tromethamine (Ketorolac 30 Mg/Ml Vial) 15 mg IV NOW ONE Stop: 05/13/22 10:57 Last Admin: 05/13/22 12:45 Dose: 15 mg Documented By: DIMITRI Vital Signs Vital signs: Vital Signs - 8 hr 05/13/22 13:56 Pulse Rate 74 Respiratory Rate 18 Blood Pressure 118/66 Pulse Oximetry 98 Oxygen Delivery Method Room Air MDM - Syncope Lab Data Result diagrams: 05/13/22 12:43 05/13/22 12:43 Labs: Lab Results 05/13/22 05/13/22 05/13/22 Range/Units 12:09 12:43 12:43 WBC 3.7 L (4.5-11.0) X10^3/uL RBC 5.23 (4.5-5.9) X10^6/uL Hgb 16.2 (13.5-17.5) g/dL Hct 45.9 (41-53) % MCV 87.7 (80-100) fL MCH 30.9 (26-34) PG MCHC 35.2 (30-36) % RDW 13.1 (11.6-14.8) % Plt Count 165 (150-400) X10^3/uL Neut % (Auto) 22.6 L (50-75) % Lymph % (Auto) 63.1 H (25-40) % [place] % (Auto) 12.9 (3-14) % Eos % (Auto) 0.8 L (2-4) % Baso % (Auto) 0.6 (0-2) % Neut # (Auto) 800 L (0961-3632) /uL Lymph # (Auto) 2300 (9787-9073) /uL [place] # (Auto) 500 (0-900) /uL Eos # (Auto) 0 (0-450) /uL Baso # (Auto) 0 (0-100) /uL Sodium 138 (137-145) mmol/L Potassium 3.8 (3.4-5.1) mmol/L Chloride 100 (98-107) mmol/L Carbon Dioxide 28 (22-32) mmol/L BUN 15 (9-20) mg/dL Creatinine 1.24 (0.66-1.25) mg/dL Estimated GFR > 60 (>60) mL/min BUN/Creatinine Ratio 12.1 (6-22) Glucose 97 (70-100) mg/dL Calcium 8.5 (8.4-10.2) mg/dL Total Bilirubin 0.9 (0.2-1.3) mg/dL AST 60 H (17-59) IU/L ALT 74 H (<50) IU/L Alkaline Phosphatase 52 (38-126) U/L Total Protein 7.2 (6.3-8.2) g/dL Albumin 4.1 (3.5-5.0) g/dL Globulin 3.1 (1.7-4.1) g/dL Albumin/Globulin Ratio 1.3 (1.0-2.8) Urine RBC None seen (0-5/HPF) Urine WBC 0-1/hpf (0-5/HPF) Ur Squamous Epith Cells 0-1 /hpf (0-5/HPF) Urine Bacteria None seen (None) Urine Mucus 1+ H (Negative) Ur Culture Indicated? Cult not indicated Urine Dip Bedside Urine Glucose Negative Bedside Urine Bilirubin - Negative Bedside Urine Ketone - Negative Urine Specific [place] 1.030 Bedside Urine Occult Blood - Negative Bedside Urine pH 6 Bedside Urine Protein + 30 Bedside Urine Urobilinogen - Negative Bedside Urine Nitrite - Negative Bedside Urine Leukocytes - Negative Esterase Imaging Data Chest x-ray: Radiologist's Impression: tient: Leeroy Denis MR#: [id number] : 1980 Acct:[id number] Age/Sex: 41 / M Date of Service: 05/13/22 Loc: ED Accession Number: [id number] ?? Procedure: XR chest 2V Ordering Provider: Ana M Colon D.O. PROCEDURE:? XR CHEST 2V ? INDICATIONS:? fall chest pain ? TECHNIQUE:? 2 views of the chest were acquired.? ? COMPARISON:? [facility], , XR CHEST 2V, 03/25/2022, 13:25. ? FINDINGS:? ? Surgical changes and devices:? None.? ? Lungs and pleura:? Lungs are clear.? No pleural effusions or pneumothorax.? ? Mediastinum:? Mediastinal contours are normal.? Heart size is normal.? ? Bones and chest wall:? No suspicious bony abnormalities.? Soft tissues appear unremarkable.? ? IMPRESSION:? No acute cardiopulmonary findings. ? ? Dictated by: Moni Vázquez M.D. on 05/13/2022 at 11:34 ? ? ECG Data Interpretation: Normal sinus rhythm rate 80 UT interval 166 QRS [address] changes no T- wave inversions Q-waves noted in lead 3 only, similar to previous EKG in 2019 MDM Narrative Medical decision making narrative: Patient has known influenza a and RSV. He had a syncopal episode last night while urinating. Consistent with micturition syncope. No significant sign of head injury. He is low risk. At this time I do not see need for CT of his head or neck. He is no meningeal signs. Blood work is overall reassuring mild leukopenia with WBC of 3.7. Overall is not septic. Chest x-ray is negative. He is given IV fluids and Toradol. He does state that he is allergic to naproxen but has tolerated Toradol previously. At this time there is no need for any further intervention or workup. Patient is to be discharged home with supportive care only. EKG is stable Discharge Plan Departure Patient Disposition: Home Clinical Impression: Syncope, Influenza A, Respiratory syncytial virus (RSV) Instructions: DI for Syncope in Adults (Fainting) Activity Restrictions/Additional Instructions: *You have been diagnosed with syncope, influenza a and RSV *What to do: At this time increase fluids as tolerated eat as you can. Drink Gatorade or Gatorade like substance. This will take time, expect to feel poorly for about 7-10 days *Continue to take medications as directed Tylenol 650 mg every 4-6 hours if needed for pain or fever *Follow up with your primary care provider in 2-3 days or call [phone] *Return to ER if you should have recurrent episode of passing out chest pain increasing shortness of breath, oxygen less than 90% or any new, worsening or concerning symptoms Prescriptions: No Action albuterol sulfate 90 mcg/actuation HFA aerosol inhaler 2 puff inhalation Q6H PRN (Reason: shortness of breath or wheezing) Qty: 8.5 0RF codeine-guaifenesin 10-100 mg/5 mL liquid 10 ml PO Q4-6H PRN (Reason: cough) 10 Days Qty: 237 0RF OMEPRAZOLE 20 mg PO DAILY Qty: 0 codeine-guaifenesin 10-100 mg/5 mL liquid 10 ml PO Q4-6H PRN (Reason: cough) Qty: 237 0RF ondansetron 4 mg Tablet,Disintegrating 4 mg PO TID PRN (Reason: Nausea) metformin 500 mg tablet 500 mg PO DAILY atorvastatin 20 mg tablet 20 mg PO DAILY Referrals: Miscellaneous,Doctor, MD [Primary Care Provider] - Stand Alone Forms: Patient Portal/API
[2022-05-13] MEDS: KETOROLAC 30 MG/ML VIAL 15 MG IV (12:45)
[2022-05-13] MEDS: SODIUM CHLORIDE 0.9% 1,000 ML 1000 ML IV (12:45)
[2022-05-13 12:57] LABS: Bacteria Urine None Seen; Culture Indicated Urine Cult Not Indicated; Mucus Urine 1+ (Negative); RBC Urine None Seen (0-5/HPF); Squamous Epithelial Cell Urine 0-1 /HPF (0-5/HPF); WBC Urine 0-1/HPF (0-5/HPF)
[2022-05-13 13:02] LABS: Add Manual Diff / Slide Review NO; Basophils Absolute Auto 0 /uL (0-100); Basophils Percent Auto 0.6 % (0-2); Eosinophils Absolute Auto 0 /uL (0-450); Eosinophils Percent Auto 0.8 % (2-4); Hematocrit 45.9 % (41-53); Hemoglobin 16.2 g/dL (13.5-17.5); Lymphocytes Absolute Auto 2300 /uL (1100-4500); Lymphocytes Percent Auto 63.1 % (25-40); Mean Corpuscular HGB Conc 35.2 % (30-36); Mean Corpuscular Hemoglobin 30.9 PG (26-34); Mean Corpuscular Volume 87.7 fL (80-100); Monocytes Absolute Auto 500 /uL (0-900); Monocytes Percent Auto 12.9 % (3-14); Neutrophils Absolute Auto 800 /uL (1500-7000); Neutrophils Percent Auto 22.6 % (50-75); Platelet Count 165 X10^3/uL (150-400); Red Blood Cell Count 5.23 X10^6/uL (4.5-5.9); Red Cell Distribution Width 13.1 % (11.6-14.8); White Blood Cell Count 3.7 X10^3/uL (4.5-11.0)
[2022-05-13 13:28] LABS: Alanine Aminotransferase 74 IU/L (<50); Albumin 4.1 g/dL (3.5-5.0); Albumin Globulin Ratio 1.3 (1.0-2.8); Alkaline Phosphatase 52 U/L (38-126); Aspartate Aminotransferase 60 IU/L (17-59); BUN Creatinine Ratio 12.1 (6-22); Bilirubin Total 0.9 mg/dL (0.2-1.3); Blood Urea Nitrogen 15 mg/dL (9-20); Calcium 8.5 mg/dL (8.4-10.2); Carbon Dioxide 28 mmol/L (22-32); Chloride 100 mmol/L (98-107); Estimated Glomerular Filt Rate > 60 mL/min (>60); Globulin 3.1 g/dL (1.7-4.1); Glucose 97 mg/dL (70-100); HEMOLYSIS < 15 (0-50); Potassium 3.8 mmol/L (3.4-5.1); Sodium 138 mmol/L (137-145); Total Protein 7.2 g/dL (6.3-8.2)
[2022-05-13 13:56] VITALS: BP 118/66; PULSE 74; RESP 18; O2SAT 98
== END 2022-05-13 13:57 | disposition home or self-care (01) ==
PROVIDERS: Emergency Provider Emergency Medicine
DX: R55 Syncope and collapse (principal); J10.1 Influenza due to other identified influenza virus with other respiratory manifestations; B97.4 Respiratory syncytial virus as the cause of diseases classified elsewhere; R07.9 Chest pain, unspecified; R07.81 Pleurodynia; Z79.899 Other long term (current) drug therapy
CPT/HCPCS: 36415; 71046; 80053; 81003; 81015; 85025; 93005; 96361; 96374; 99284; J1885

== ENCOUNTER → 2022-10-21 15:48 | Outpatient (CLI) | payer OTHER, SELFPAY ==
--- NOTE | 2022-10-21 15:49 | DI.RAD.S_ITS ---
PROCEDURE: XR CHEST 2V INDICATIONS: Cough TECHNIQUE: 2 views of the chest were acquired. COMPARISON: [facility], CR, XR CHEST 2V, 05/13/2022, 11:04. FINDINGS: Surgical changes and devices: None. Lungs and pleura: Lungs are clear. No pleural effusions or pneumothorax. Mediastinum: Mediastinal contours are normal. Heart size is normal. Bones and chest wall: No suspicious bony abnormalities. Soft tissues appear unremarkable. IMPRESSION: No acute cardiopulmonary disease. Dictated by: Hanh Brody M.D. on 10/21/2022 at 16:31 Approved by: Hanh Brody M.D. on 10/21/2022 at 16:31
== END ==
PROVIDERS: Referring Provider Nurse Practitioner Family; Visit Provider Nurse Practitioner Family
DX: R05.9 Cough, unspecified (principal)
CPT/HCPCS: 71046

== ENCOUNTER → 2024-04-05 17:14 | Outpatient (ROUT) | payer OTHER, SELFPAY ==
[2024-04-05 18:49] LABS: Influenza A - CEPHEID Flu A NEGATIVE (NEGATIVE); Influenza B - CEPHEID Flu B NEGATIVE (NEGATIVE); Respiratory Syncytial Virus Negative (Negative)
[2024-04-05 18:50] LABS: COVID-19 CEPHEID 4-PLEX PCR Negative (Negative)
== END ==
PROVIDERS: Visit Provider Family Medicine
DX: R63.4 Abnormal weight loss (principal); R10.84 Generalized abdominal pain; R52 Pain, unspecified; R68.83 Chills (without fever)
CPT/HCPCS: 0241U

== ENCOUNTER → 2024-04-20 16:30 | Outpatient (CLI) | payer OTHER, SELFPAY ==
--- NOTE | 2024-04-20 16:31 | DI.US.S_ITS ---
PROCEDURE: US ABDOMEN LIMITED INDICATIONS: SOFT TISSUE MASSES IN ABD AREA LLQ AND EPIGASTRIC TECHNIQUE: Real-time focused scanning was performed of the left lower quadrant/epigastric abdomen, with image documentation. COMPARISON: CT abdomen pelvis with contrast 01/30/2019 (report only; unsuccessful image retrieval) FINDINGS: Approximately 11 cm cranial to the umbilicus, there is a 1.3 x 1.4 x 1.1 cm subcutaneous, isoechoic round mass without significant internal vascularity or discrete capsular borders. At the umbilicus, there is a fat containing umbilical hernia, with the wall defect measuring 2.6 cm in maximum diameter. The defect was partially reducible. At the left flank, 2 subcutaneous, isoechoic masses (relative to fat) without significant internal vascularity and capsular borders are present. The more superior mass measures 4.4 x 3.9 x 1.4 cm, while the inferior mass measures 1.5 x 1.8 x 1.2 cm. IMPRESSION: 1. Supraumbilical 1.4 cm mass, which may represent a low-grade lipomatous tumor such as an unencapsulated lipoma. 2. Left flank masses between 1.8-4.4 cm, which may represent low-grade lipomatous tumor such as encapsulated lipomas. 3. Small fat containing and partially reducible umbilical hernia. Dictated by: Ganga Thomas M.D. on 04/21/2024 at 13:33 Approved by: Ganga Thomas M.D. on 04/21/2024 at 13:42
== END ==
PROVIDERS: PCP Family Medicine; Referring Provider Family Medicine; Visit Provider Family Medicine
DX: K42.0 Umbilical hernia with obstruction, without gangrene (principal); R19.05 Periumbilic swelling, mass or lump; R19.04 Left lower quadrant abdominal swelling, mass and lump; M79.89 Other specified soft tissue disorders
CPT/HCPCS: 76705

== ENCOUNTER → 2024-05-12 09:52 | Outpatient (CLI) | payer OTHER, SELFPAY ==
[2024-05-12 10:53] LABS: Estimated Glomerular Filt Rate > 60 mL/min (>60)
--- NOTE | 2024-05-12 11:25 | DI.CT.S_ITS ---
PROCEDURE: CT ABDOMEN PELVIS W CON INDICATIONS: weight loss, nausea, epigastric pain TECHNIQUE: After the administration of intravenous contrast, axial sections acquired from the lung bases to the pubic symphysis. Coronal and sagittal reformats were performed. For radiation dose reduction, the following was used: automated exposure control, adjustment of mA and/or kV according to patient size. COMPARISON: [facility], CT, CT ABDOMEN PELVIS W CON, 01/30/2019, 14:58. FINDINGS: Image quality: Diagnostic. Lower Chest: No significant findings. ABDOMEN: Liver: No solid mass. Hepatic steatosis. Gallbladder: Absent. Biliary ducts: No biliary dilation. Pancreas: No ductal dilation. No peripancreatic fluid collection. Spleen: Size is within normal limits. Adrenal Glands: No adrenal nodules. Kidneys and Ureters: No hydronephrosis. No solid mass. No complex renal cystic lesion which requires follow up. Stomach and Bowel: Normal colonic caliber, without significant wall thickening. Normal appendix. No small bowel obstruction. The stomach is within normal limits. Peritoneum: No abnormal intraperitoneal fluid. No free air. Ventral Wall: Small fat containing umbilical hernia. Abdominal Nodes: No retroperitoneal or mesenteric adenopathy by size criteria. Vessels: Aorta and inferior vena cava are normal in size. PELVIS: Pelvic Organs: Unremarkable. Bladder: No bladder wall thickening. No stone. Pelvic Nodes: No enlarged lymph nodes. Miscellaneous: No significant inguinal hernias are seen. Bones: No aggressive osseous abnormality. IMPRESSION: No acute abnormality seen. No free fluid. Hepatic steatosis. Dictated by: Tommie Quijaon M.D. on 05/12/2024 at 14:56 Approved by: Tommie Quijano M.D. on 05/12/2024 at 15:00
== END ==
PROVIDERS: Radiology Diagnostic Radiology; PCP Family Medicine; Referring Provider Family Medicine; Visit Provider Family Medicine
DX: E44.0 Moderate protein-calorie malnutrition (principal); R63.4 Abnormal weight loss; D17.1 Benign lipomatous neoplasm of skin and subcutaneous tissue of trunk; K76.0 Fatty (change of) liver, not elsewhere classified; R11.0 Nausea; R10.13 Epigastric pain; J98.01 Acute bronchospasm; B34.9 Viral infection, unspecified; Z90.49 Acquired absence of other specified parts of digestive tract
CPT/HCPCS: 36415; 74177; 82565; Q9967

== ENCOUNTER 2024-06-06 11:24 | Day surgery (SDC) | payer OTHER, SELFPAY ==
[2024-05-31 09:55] VITALS: BMI 36.2
[2024-06-06] VITALS (8 sets, daily range): BP systolic 113–129; BP diastolic 66–85; PULSE 80–92; RESP 10–17; TEMP 36.2–36.7; O2SAT 96–99; BMI 36.2
[2024-06-06] MEDS: LACTATED RINGERS 1,000 ML 42 ML IV (12:11)
--- NOTE | 2024-06-06 12:50 | PM.PREOP ---
Pre-operative Note COVID-19 COVID-19 status: Not tested Interval Note History & Physical reviewed/Exam performed by Physician: Yes Changes to H&P: No ASA Class (for procedural sedation): II
[2024-06-06] MEDS: CEFAZOLIN 2 GM/100 ML PREMIX 100 ML IV (13:29)
--- NOTE | 2024-06-06 13:38 | SUR.OPER ---
Supine on padded OR bed, head on pillow, arms secured on padded arm boards at <90 degrees abduction, legs uncrossed, safety belt at thigh, tape over blanket over lower legs.
[2024-06-06] MEDS: BUPIVACAINE 0.5% W/ EPI (PF) 30 ML VIAL INJ (13:46)
--- NOTE | 2024-06-06 14:24 | PM.OP.1 ---
Operative Date/Time/Diagnoses Date of procedure: 06/06/24 Time of procedure: 14:24 Pre-op diagnosis: Umbilical hernia Post-op diagnosis: same Procedure & Clinicians Procedure: Open umbilical hernia repair with mesh Same procedure as scheduled: Yes Surgeon: Tam Ma Anesthesia Type: General Operative Notes Procedure in detail: Ancef was administered. The patient was brought to the operating room, placed on the table in the supine position and general endotracheal anesthesia was induced. The abdomen was prepped and draped in the usual fashion. A time-out was performed. A 6 cm curvilinear incision was made inferior to the umbilicus. The hernia sac was dissected free from the surrounding subcutaneous adipose tissue. The sac was dissected off the umbilical stalk using a combination of cautery, sharp and blunt dissection. The hernia sac was dissected free from the fascial ring and allowed to drop back down into the abdomen. The fascial defect was about 1 cm. The fascia was then closed transversely with multiple interrupted 0 Ethibond sutures. The subcutaneous adipose tissue was cleared off of the anterior sheath circumferentially about 2 cm in each direction. A piece of polypropylene mesh was trimmed to fit over the fascial closure and secured with Tisseel. Once the Tisseel was dried the umbilical skin was tacked down to the mesh with a single 3-0 Vicryl stitch. The skin was closed with multiple interrupted 3-0 Vicryl dermal sutures followed by a running 4 Monocryl subcuticular closure. Steri-Strips were applied and an abdominal binder was applied. EBL: 10 mL Post-operative Condition: stable Disposition: PACU
[2024-06-06] MEDS: BENZOCAINE/MENTHOL 1 LOZ PKT 1 EACH PO (14:41)
[2024-06-06] MEDS: ACETAMINOPHEN 325 MG TABLET 975 MG PO (14:43)
[2024-06-06] MEDS: OXYCODONE IR 5 MG TABLET PO (14:54)
== END 2024-06-06 15:08 | disposition home or self-care (01) ==
PROVIDERS: PCP Family Medicine; Referring Provider Surgery; Visit Provider Surgery
PROC: (CPT 49591; principal; 2024-06-06 13:00)
DX: K42.9 Umbilical hernia without obstruction or gangrene (principal); E11.9 Type 2 diabetes mellitus without complications; I10 Essential (primary) hypertension; G47.33 Obstructive sleep apnea (adult) (pediatric); Z87.891 Personal history of nicotine dependence; Z79.84 Long term (current) use of oral hypoglycemic drugs
CPT/HCPCS: 49591; J0330; J0690; J2250; J2405; J2704; J3010

== ENCOUNTER → 2024-08-21 15:17 | Outpatient (CLI) | payer OTHER, SELFPAY ==
--- NOTE | 2024-08-21 15:18 | DI.RAD.S_ITS ---
PROCEDURE: FL BARIUM SWALLOW INDICATIONS: Epigastric pain COMPARISON: None. FINDINGS: Function: There is normal esophageal peristalsis. No elicited gastroesophageal reflux. There is normal transit of a calibrated barium tablet through the esophagus into the stomach. Morphology: Small sliding hiatal hernia was noted intermittently during fluoroscopy. Air-contrast images demonstrate normal mucosal morphology. Single contrast views show no esophageal strictures, extrinsic mass effects, or diverticula. Limited images of the stomach demonstrate normal appearance. IMPRESSION: Small sliding hiatal hernia intermittently. No fluoroscopic evidence of gastroesophageal reflux during the time of the exam. Dictated by: Walter Horner M.D. on 08/23/2024 at 8:34 Approved by: Walter Horner M.D. on 08/23/2024 at 8:36
== END ==
PROVIDERS: PCP Family Medicine; Referring Provider Family Medicine; Visit Provider Family Medicine
DX: K44.9 Diaphragmatic hernia without obstruction or gangrene (principal); R10.13 Epigastric pain
CPT/HCPCS: 74220